=== PATIENT | male | born 1945 | race African-American/Black ===

== ENCOUNTER 2017-02-06 17:41 | Emergency (ER) | payer MEDICARE, OTHER ==
[2017-02-06] MEDS ORDERED: DIPHENHYDRAMINE HCL 50 MG/ML VIAL IV ONE (18:20)
--- NOTE | 2017-02-06 18:55 | ER Document Report ---
ED General - General Chief Complaint: General Weakness Stated Complaint: ALTERED MENTAL STATUS Mode of Arrival: Medic Information source: Patient Notes: 71-year-old male presents with with concerns of numbness sensation in the hand as well as facial tic after being started on gabapentin by primary care physician. Patient notes medication was started yesterday as the symptoms started as well. Denies any weakness anywhere TRAVEL OUTSIDE OF THE [place] IN LAST 30 DAYS: No - HPI Onset: Yesterday Onset/Duration: Sudden Quality of pain: No pain Severity: Mild Pain Level: Denies Associated symptoms: Other Exacerbated by: Denies Relieved by: Denies Similar symptoms previously: Yes Recently seen / treated by doctor: Yes - Related Data Allergies/Adverse Reactions: No Known Allergies Allergy (Verified 02/06/17 18:19) Past Medical History - Social History Smoking Status: Never Smoker Cigarette use (# per day): No Chew tobacco use (# tins/day): No Smoking Education Provided: No Frequency of alcohol use: no longer Drug Abuse: None Family History: Reviewed & Not Pertinent - Past Medical History Cardiac Medical History: Reports: Hx Atrial Fibrillation, Hx Coronary Artery Disease - NON-OBSTRUCTIVE BY CATH, Hx Hypercholesterolemia, Hx Hypertension Denies: Hx Congestive Heart Failure, Hx Heart Attack, Hx Peripheral Vascular Disease, Hx Heart Murmur Pulmonary Medical History: Denies: Hx Asthma, Hx Tuberculosis Neurological Medical History: Denies: Hx Cerebrovascular Accident, Hx Seizures Renal/ Medical History: Reports: Hx Benign Prostatic Hyperplasia GI Medical History: Reports: Hx Gastroesophageal Reflux Disease. Denies: Hx Hepatitis, Hx Hiatal Hernia, Hx Ulcer Psychiatric Medical History: Reports: Hx Depression Infectious Medical History: Denies: Hx Hepatitis Past Surgical History: Reports: Hx Cardiac Surgery - Internal heart monitor Aug 2014, Hx Orthopedic Surgery - MINOR TOE PROCEEDURE. Denies: Hx Appendectomy, Hx Bowel Surgery, Hx Cholecystectomy, Hx Coronary Artery Bypass Graft, Hx Gastric Bypass Surgery, Hx Herniorrhaphy, Hx Open Heart Surgery, Hx Pacemaker, Hx Tonsillectomy - Immunizations Immunizations up to date: Yes Hx Diphtheria, Pertussis, Tetanus Vaccination: Yes Hx Pneumococcal Vaccination: 09/20/11 Review of Systems - Review of Systems Notes: REVIEW OF SYSTEMS: CONSTITUTIONAL : Denies fever, chills, or sweats. Denies recent illness. EENT: Denies eye, ear, throat, or mouth pain or symptoms. Denies nasal or sinus congestion or discharge. Denies throat, tongue, or mouth swelling or difficulty swallowing. CARDIOVASCULAR: Denies chest pain. Denies palpitations or racing or irregular heart beat. Denies ankle edema. RESPIRATORY: Denies cough, cold, or chest congestion. Denies shortness of breath, difficulty breathing, or wheezing. GASTROINTESTINAL: Denies abdominal pain or distention. Denies nausea, vomiting , or diarrhea. Denies blood in vomitus, stools, or per rectum. Denies black, tarry stools. Denies constipation. GENITOURINARY: Denies difficulty urinating, painful urination, burning, frequency, blood in urine, or discharge. MUSCULOSKELETAL: Denies back or neck pain or stiffness. Denies joint pain or swelling. SKIN: Denies rash, lesions or sores. HEMATOLOGIC : Denies easy bruising or bleeding. LYMPHATIC: Denies swollen, enlarged glands. NEUROLOGICAL: Admits to numbness and facial tic PSYCHIATRIC: Denies anxiety or stress. Denies depression, suicidal ideation, or homicidal ideation. ALL OTHER SYSTEMS REVIEWED AND NEGATIVE. Dictation was performed using [employer] voice recognition software PHYSICAL EXAMINATION: GENERAL: Well-appearing, well-nourished and in no acute distress. HEAD: Atraumatic, normocephalic. EYES: Pupils equal round and reactive to light, extraocular movements intact, sclera anicteric, conjunctiva are normal. ENT: Nares patent, oropharynx clear without exudates. Moist mucous membranes. NECK: Normal range of motion, supple without lymphadenopathy LUNGS: Breath sounds clear to auscultation bilaterally and equal. No wheezes rales or rhonchi. HEART: Regular rate and rhythm without murmurs ABDOMEN: Soft, nontender, nondistended abdomen. No guarding, no rebound. No masses appreciated. Musculoskeletal: Normal range of motion, no pitting or edema. No cyanosis. NEUROLOGICAL: Cranial nerves grossly intact. Normal speech, normal gait. Normal sensory, motor exams no neurological deficits noted PSYCH: Normal mood, normal affect. SKIN: Warm, Dry, normal turgor, no rashes or lesions noted. Physical Exam - Vital signs Vitals: Temp Resp BP Pulse Ox 98.4 F 11 L 131/77 H 100 02/06/17 18:24 02/06/17 18:24 02/06/17 18:24 02/06/17 18:24 Course - Re-evaluation Re-evalutation: 02/06/17 18:55 I believe patient is having a reaction to the gabapentin, he'll be given Benadryl and CT of the head lab work pending 02/06/17 19:36 CT of the head lab work note no significant abnormality patient will be discharged to follow-up with primary care physician I requested that he take Benadryl for the facial tic and reaction to medication After performing a Medical Screening Examination, I estimate there is LOW risk for INTRACRANIAL HEMORRHAGE, ISCHEMIC CVA, MALIGNANT DYSRHYTHMIA, ACUTE CORONARY SYNDROME, MENINGITIS, PULMONARY EMBOLISM, or SEPSIS thus I consider the discharge disposition reasonable. I have reevaluated this patient multiple times and no significant life threatening changes are noted. The patient and I have discussed the diagnosis and risks, and we agree with discharging home with close follow-up with the understanding that symptoms and presentations can change. We also discussed returning to the Emergency Department immediately if new or worsening symptoms occur. We have discussed the symptoms which are most concerning (e.g., changing or worsening pain, weakness, vomiting, fever) that necessitate immediate return. - Vital Signs Vital signs: Temp Pulse Resp BP Pulse Ox 98.4 F 11 L 131/77 H 100 02/06/17 18:24 02/06/17 18:24 02/06/17 18:24 02/06/17 18:24 - Laboratory Result Diagrams: 02/06/17 18:58 02/06/17 18:58 Laboratory results interpreted by me: 02/06/17 02/06/17 18:58 18:58 RBC 3.95 L Hgb 12.1 L Hct 35.9 L Est GFR (Non-Af Amer) 59 L ALT 81 H - Diagnostic Test Radiology reviewed: Image reviewed, Reports reviewed - EKG Interpretation by Oh EKG shows normal: Sinus rhythm, [place], Intervals, QRS Complexes Discharge - Discharge Clinical Impression: Facial tic, Medication reaction Condition: Stable Disposition: HOME, SELF-CARE Additional Instructions: Please take Benadryl 50 mg every 6 hours for reaction to medication please stop taking gabapentin Referrals: RUDY SANTIAGO MD [Primary Care Provider] - Follow up tomorrow
[2017-02-06 19:06] LABS: ABSOLUTE EOSINOPHILS # (AUTO) 0.1 10^3/uL (0.0-0.6); ABSOLUTE LYMPHOCYTES (AUTO) 1.5 10^3/uL (0.5-4.7); ABSOLUTE MONOCYTES (AUTO) 0.5 10^3/uL (0.1-1.4); ABSOLUTE NEUT (AUTO) 3.2 10^3/uL (1.7-8.2); BASOPHILS % (AUTO) 0.8 % (0-2); EOSINOPHILS % (AUTO) 2.7 % (0-6); HEMATOCRIT 35.9 % (37.9-51.0); HEMOGLOBIN 12.1 g/dL (13.5-17.0); HGB HCT DIFFERENCE 0.4; LYMPHOCYTES % (AUTO) 27.9 % (13-45); MEAN CORPUSCULAR HEMOGLOBIN 30.5 pg (27.0-33.4); MEAN CORPUSCULAR HGB CONC 33.6 g/dL (32.0-36.0); MEAN CORPUSCULAR VOLUME 91 fl (80-97); RED BLOOD COUNT 3.95 10^6/uL (4.35-5.55); SEGMENTED NEUTROPHILS % (AUTO) 58.6 % (42-78); WHITE BLOOD COUNT 5.4 10^3/uL (4.0-10.5)
--- NOTE | 2017-02-06 19:08 | EKG REPORT ---
SEVERITY:- ABNORMAL ECG - SINUS RHYTHM LEFT VENTRICULAR HYPERTROPHY : Confirmed by: Arden Hinton MD 06-Feb-2017 19:08:05
[2017-02-06 19:23] LABS: ALANINE AMINOTRANSFERASE 81 U/L (21-72); ALBUMIN 3.7 g/dL (3.5-5.0); ALKALINE PHOSPHATASE 89 U/L (38-126); ANION GAP 11 (5-19); ASPARTATE AMINO TRANSFERASE 33 U/L (17-59); BILIRUBIN,DIRECT 0.3 mg/dL (0.0-0.4); BILIRUBIN,TOTAL 0.5 mg/dL (0.2-1.3); BLOOD UREA NITROGEN 15 mg/dL (7-20); CALCIUM 9.2 mg/dL (8.4-10.2); CARBON DIOXIDE 27 mmol/L (22-30); CHLORIDE 104 mmol/L (98-107); CREATININE RESULT 1.21 mg/dL (0.52-1.25); GLUCOSE 96 mg/dL (75-110); POTASSIUM 4.3 mmol/L (3.6-5.0); TOTAL PROTEIN 6.4 g/dL (6.3-8.2)
[2017-02-06 20:21] VITALS: BP 141/89
== END 2017-02-06 20:00 | disposition home or self-care (01) ==
LOC: ER 17:41
DX: G25.61 Drug induced tics (principal); R20.0 Anesthesia of skin; T42.6X5A Adverse effect of other antiepileptic and sedative-hypnotic drugs, initial encounter; I25.10 Atherosclerotic heart disease of native coronary artery without angina pectoris; I10 Essential (primary) hypertension
CPT/HCPCS: 93005; 99285; 96374; 36415; 82962; 85025; 80053; 70450; 93010; J1200

== ENCOUNTER 2017-05-22 14:17 | Inpatient (IN) | payer MEDICARE, OTHER ==
[~2017-05-22 14:17] MED LIST: AMINOPHYLLINE INJ/PF 250 MG/10 ML SDV IV ONE; REGADENOSON INJ 0.4 MG/5 ML DISP.SYRIN IV ONE
--- NOTE | 2017-05-22 14:47 | ER Document Report ---
ED Medical Screen (RME) - General Chief Complaint: Chest Pain Stated Complaint: DIFFICULTY BREATHING CHEST PAIN Time Seen by Provider: 05/22/17 14:42 Mode of Arrival: Wheelchair Information source: Patient Notes: 72-year-old male presents with complaints of decreased appetite over the past 2 days. Patient notes that he has lost weight and does not feel like eating. Patient denies any fevers or chills Patient does note shortness of breath denies any chest pain I have greeted and performed a rapid initial assessment of this patient. A comprehensive ED assessment and evaluation of the patient, analysis of test results and completion of the medical decision making process will be conducted by additional ED providers. PHYSICAL EXAMINATION: GENERAL: Thin male no acute distress HEAD: Atraumatic, normocephalic. EYES: Pupils equal round extraocular movements intact, conjunctiva are normal. ENT: Nares patent NECK: Normal range of motion LUNGS: No respiratory distress Musculoskeletal: Normal range of motion NEUROLOGICAL: Normal speech, normal gait. PSYCH: Normal mood, normal affect. SKIN: Warm, Dry, normal turgor, no rashes or lesions noted. TRAVEL OUTSIDE OF THE [place] IN LAST 30 DAYS: No - Related Data Allergies/Adverse Reactions: No Known Allergies Allergy (Verified 05/22/17 14:18) Past Medical History - Social History Frequency of alcohol use: None Drug Abuse: None - Past Medical History Cardiac Medical History: Reports: Hx Atrial Fibrillation, Hx Coronary Artery Disease - NON-OBSTRUCTIVE BY CATH, Hx Hypercholesterolemia, Hx Hypertension Denies: Hx Congestive Heart Failure, Hx Heart Attack, Hx Peripheral Vascular Disease, Hx Heart Murmur Pulmonary Medical History: Denies: Hx Asthma, Hx Tuberculosis Neurological Medical History: Denies: Hx Cerebrovascular Accident, Hx Seizures Renal/ Medical History: Reports: Hx Benign Prostatic Hyperplasia. Denies: Hx Peritoneal Dialysis GI Medical History: Reports: Hx Gastroesophageal Reflux Disease. Denies: Hx Hepatitis, Hx Hiatal Hernia, Hx Ulcer Psychiatric Medical History: Reports: Hx Depression Infectious Medical History: Denies: Hx Hepatitis Past Surgical History: Reports: Hx Cardiac Surgery - Internal heart monitor Aug 2014, Hx Orthopedic Surgery - MINOR TOE PROCEEDURE. Denies: Hx Appendectomy, Hx Bowel Surgery, Hx Cholecystectomy, Hx Coronary Artery Bypass Graft, Hx Gastric Bypass Surgery, Hx Herniorrhaphy, Hx Open Heart Surgery, Hx Pacemaker, Hx Tonsillectomy - Immunizations Immunizations up to date: Yes Hx Diphtheria, Pertussis, Tetanus Vaccination: Yes Physical Exam - Vital signs Vitals: Resp 18 05/22/17 14:33 Course - Vital Signs Vital signs: Temp Pulse Resp BP Pulse Ox 97.7 F 99 20 115/58 L 100 05/22/17 14:35 05/22/17 14:35 05/22/17 14:35 05/22/17 14:35 05/22/17 14:35
[2017-05-22 15:22] LABS: ABSOLUTE LYMPHOCYTES (AUTO) 1.2 10^3/uL (0.5-4.7); ABSOLUTE MONOCYTES (AUTO) 0.4 10^3/uL (0.1-1.4); ABSOLUTE NEUT (AUTO) 6.9 10^3/uL (1.7-8.2); BASOPHILS % (AUTO) 0.4 % (0-2); EOSINOPHILS % (AUTO) 0.1 % (0-6); HEMATOCRIT 40.7 % (37.9-51.0); HEMOGLOBIN 13.8 g/dL (13.5-17.0); HGB HCT DIFFERENCE 0.7; LYMPHOCYTES % (AUTO) 14.1 % (13-45); MEAN CORPUSCULAR HEMOGLOBIN 32.1 pg (27.0-33.4); MEAN CORPUSCULAR HGB CONC 33.8 g/dL (32.0-36.0); MEAN CORPUSCULAR VOLUME 95 fl (80-97); MONOCYTES % (AUTO) 4.9 % (3-13); RED BLOOD COUNT 4.29 10^6/uL (4.35-5.55); RED CELL DISTRIBUTION WIDTH 14.6 % (11.5-14.0); SEGMENTED NEUTROPHILS % (AUTO) 80.5 % (42-78); WHITE BLOOD COUNT 8.6 10^3/uL (4.0-10.5)
--- NOTE | 2017-05-22 15:37 | RADIOLOGY REPORT (SQ) ---
EXAM DESCRIPTION: CHEST SINGLE VIEW COMPLETED DATE/TIME: 05/22/2017 3:18 pm REASON FOR STUDY: sob COMPARISON: 06/09/2016 NUMBER OF VIEWS: One view. TECHNIQUE: Single frontal radiographic view of the chest acquired. LIMITATIONS: None. FINDINGS: LUNGS AND PLEURA: No opacities, masses or pneumothorax. No pleural effusion. MEDIASTINUM AND HILAR STRUCTURES: No masses. Contour normal. HEART AND VASCULAR STRUCTURES: Heart normal in size. Normal vasculature. BONES: No acute findings. HARDWARE: None in the chest. OTHER: No other significant finding. IMPRESSION: NO SIGNIFICANT RADIOGRAPHIC FINDING IN THE CHEST. TECHNICAL DOCUMENTATION: JOB ID: [id number] [employer] [facility] [employer]- All Rights Reserved
[2017-05-22 15:45] LABS: ALANINE AMINOTRANSFERASE 99 U/L (21-72); ALBUMIN 4.3 g/dL (3.5-5.0); ALKALINE PHOSPHATASE 83 U/L (38-126); ASPARTATE AMINO TRANSFERASE 117 U/L (17-59); BILIRUBIN,DIRECT 0.5 mg/dL (0.0-0.4); BILIRUBIN,TOTAL 1.1 mg/dL (0.2-1.3); BLOOD UREA NITROGEN 25 mg/dL (7-20); CALCIUM 9.2 mg/dL (8.4-10.2); CHLORIDE 106 mmol/L (98-107); CREATININE RESULT 1.03 mg/dL (0.52-1.25); GLUCOSE 108 mg/dL (75-110); POTASSIUM 3.3 mmol/L (3.6-5.0); TOTAL PROTEIN 7.1 g/dL (6.3-8.2)
[2017-05-22 15:53] LABS: CREATINE KINASE 2654 U/L (55-170)
[2017-05-22 15:54] LABS: ANION GAP 19 (5-19); CARBON DIOXIDE 15 mmol/L (22-30); SODIUM 140.2 mmol/L (137-145)
[2017-05-22 15:59] LABS: TROPONIN I < 0.012 ng/mL
--- NOTE | 2017-05-22 16:50 | ER Document Report ---
ED General - General Mode of Arrival: Wheelchair Information source: Patient TRAVEL OUTSIDE OF THE [place] IN LAST 30 DAYS: No <COREEN DAVIS - Last Filed: 05/22/17 19:59> <WESLEY ALEX - Last Filed: 05/22/17 22:30> - General Chief Complaint: Chest Pain Stated Complaint: DIFFICULTY BREATHING CHEST PAIN Time Seen by Provider: 05/22/17 14:42 Notes: Patient is a 72-year-old male who presents to the emergency department today with complaints of shortness of breath. Patient states "I asked for a sandwich a couple hours ago" when walking into the room. Patient states he does not think he has been drinking as much water as he should have over the last few days. Patient complains of chest pain. Patient denies any muscle cramps. Patient is a poor historian so history is limited. (COREEN DAVIS) - Related Data Allergies/Adverse Reactions: No Known Allergies Allergy (Verified 05/22/17 14:18) Home Medications: Current Home Medications Docusate Sodium [Colace 100 mg Capsule] 200 mg PO BID 05/22/17 [History] Finasteride [Proscar 5 mg Tablet] 5 mg PO DAILY 05/22/17 [History] Folic Acid [Folvite 1 mg Tablet] 1 mg PO DAILY 05/22/17 [History] Lubiprostone [Amitiza 24 Mcg Capsule] 24 mcg PO BIDACBS 05/22/17 [History] Metoprolol Succinate [Toprol Xl 50 mg Tab.sr] 50 mg PO DAILY 05/22/17 [History] Thiamine HCl [Thiamine 100 mg Tablet] 100 mg PO DAILY 05/22/17 [History] Past Medical History - General Information source: Patient - Social History Smoking Status: Never Smoker Cigarette use (# per day): No Frequency of alcohol use: None Drug Abuse: None Lives with: Family Family History: Reviewed & Not Pertinent Patient has suicidal ideation: No Patient has homicidal ideation: No - Past Medical History Cardiac Medical History: Reports: Hx Atrial Fibrillation, Hx Coronary Artery Disease, Hx Hypercholesterolemia Renal/ Medical History: Reports: Hx Benign Prostatic Hyperplasia GI Medical History: Reports: Hx Gastroesophageal Reflux Disease Psychiatric Medical History: Reports: Hx Depression Past Surgical History: Reports: Hx Cardiac Surgery - Internal heart monitor Aug 2014, Hx Orthopedic Surgery - MINOR TOE PROCEEDURE - Immunizations Immunizations up to date: Yes Hx Diphtheria, Pertussis, Tetanus Vaccination: Yes Hx Pneumococcal Vaccination: 09/20/11 <COREEN DAVIS - Last Filed: 05/22/17 19:59> Review of Systems - Review of Systems Constitutional: No symptoms reported EENT: No symptoms reported Cardiovascular: See HPI, Chest pain Respiratory: See HPI, Short of breath Gastrointestinal: No symptoms reported Genitourinary: No symptoms reported Male Genitourinary: No symptoms reported Musculoskeletal: No symptoms reported Skin: No symptoms reported Hematologic/Lymphatic: No symptoms reported Neurological/Psychological: No symptoms reported -: Yes All other systems reviewed and negative <COREEN DAVIS - Last Filed: 05/22/17 19:59> Physical Exam <COREEN DAVIS - Last Filed: 05/22/17 19:59> <WESLEY ALEX - Last Filed: 05/22/17 22:30> - Vital signs Vitals: Resp 18 05/22/17 14:33 - Notes Notes: Physical Exam: General: Alert, appears well. HEENT: Normocephalic. Atraumatic. PERRL. Extraocular movements intact. Oropharynx clear. Dry mucous membranes. Neck: Supple. Non-tender. Respiratory: No respiratory distress. Clear and equal breath sounds bilaterally. Cardiovascular: Regular rate and rhythm. Abdominal: Normal Inspection. Non-tender. No distension. Normal Bowel Sounds. Back: Non-tender. No deformity or step off. Extremities: Moves all four extremities. Upper extremities: Normal inspection. Normal ROM. Lower extremities: Normal inspection. No edema. Normal ROM. Neurological: Normal cognition. AAOx4. Normal speech. Slow to answer, occasional inappropriate responses consistent with encephalopathy. Psychological: Normal affect. Normal Mood. Skin: Warm. Dry. Normal color. (COREEN DAVIS) Course - Laboratory Result Diagrams: 05/22/17 15:00 05/22/17 15:00 <COREEN DAVIS - Last Filed: 05/22/17 19:59> - Laboratory Result Diagrams: 05/22/17 15:00 05/22/17 15:00 - Diagnostic Test Radiology reviewed: Reports reviewed - EKG Interpretation by Ga EKG shows normal: Sinus rhythm Rate: Normal Rhythm: NSR <WESLEY ALEX - Last Filed: 05/22/17 22:30> - Re-evaluation Re-evalutation: 05/22/17 Patient is a 72-year-old male who has an odd affect. Patient was complaining of chest pain. Patient's blood work also shows that he is in some rhabdomyolysis. Patient states that perhaps he has been drinking less fluids than he should last few days. He has no complaints of chest pain at this time. Patient is able to tell me that he lives with his in a year, as well as a month. However, when I am asking him medical questions, he just asked me for food. Patient was discussed with Dr. Luna and will be admitted for further evaluation of chest pain and encephalopathy. He also be given fluids for rhabdomyolysis. Stable at this time. (WESLEY ALEX) - Vital Signs Vital signs: Temp Pulse Resp BP Pulse Ox 98.1 F 92 9 L 160/88 H 98 05/22/17 18:25 05/22/17 20:00 05/22/17 21:38 05/22/17 21:38 05/22/17 21:38 - Laboratory Laboratory results interpreted by me: 05/22/17 05/22/17 05/22/17 15:00 15:00 15:00 RBC 4.29 L RDW 14.6 H Seg Neutrophils % 80.5 H Potassium 3.3 L Carbon Dioxide 15 L BUN 25 H Direct Bilirubin 0.5 H AST 117 H ALT 99 H Creatine Kinase 2654 H CK-MB (CK-2) 18.60 H Urine Protein Urine Ketones Urine Blood 05/22/17 16:45 RBC RDW Seg Neutrophils % Potassium Carbon Dioxide BUN Direct Bilirubin AST ALT Creatine Kinase CK-MB (CK-2) Urine Protein >=500 H Urine Ketones 20 H Urine Blood MODERATE H Discharge <COREEN DAVIS - Last Filed: 05/22/17 19:59> - Discharge Admitting Provider: Tawanna Unit Admitted: Telemetry <WESLEY ALEX - Last Filed: 05/22/17 22:30> - Discharge Clinical Impression: Encephalopathy Rhabdomyolysis Qualifiers: Rhabdomyolysis type: non-traumatic Qualified Code(s): M62.82 - Rhabdomyolysis Condition: Stable Disposition: ADMITTED INPATIENT Scribe Attestation: 08/15/17 22:30 I personally performed the services described in the documentation, reviewed and edited the documentation which was dictated to the scribe in my presence, and it accurately records my words and actions. (WESLEY ALEX) Scribe Documentation - Scribe Written by Scribe:: Shabana Deutsch, 05/22/2017 1703 acting as scribe for :: June <COREEN DAVIS - Last Filed: 05/22/17 19:59>
[2017-05-22 17:20] LABS: APPEARANCE,URINE SLIGHTLY-CLOUDY; BILIRUBIN,URINE NEGATIVE (NEGATIVE); GLUCOSE, URINE NEGATIVE (NEGATIVE); KETONES,URINE 20 mg/dL (NEGATIVE); LEUKOCYTE ESTERASE,URINE NEGATIVE (NEGATIVE); NITRITE,URINE NEGATIVE (NEGATIVE); PROTEIN,URINE >=500 mg/dL (NEGATIVE); URINE SPECIFIC GRAVITY 1.033; UROBILINOGEN,URINE NEGATIVE mg/dL (<2.0)
--- NOTE | 2017-05-22 17:24 | RADIOLOGY REPORT (SQ) ---
EXAM DESCRIPTION: CT HEAD WITHOUT COMPLETED DATE/TIME: 05/22/2017 5:03 pm REASON FOR STUDY: AMS COMPARISON: 02/06/2017 TECHNIQUE: Axial images acquired through the brain without intravenous contrast. Images reviewed wi th bone, brain and subdural windows. Images stored on PACS. All CT scanners at this facility use dose modulation, iterative reconstruction, and/or weight based d osing when appropriate to reduce radiation dose to as low as reasonably achievable (ALARA). [facility]: Dose Right [facility]: CareDose [facility]: Dose Right [facility]: Teradose 4D [facility]: Smart Ganji RADIATION DOSE: Up-to-date CT equipment and radiation dose reduction techniques were employed. CTDIv ol: 64.6 mGy. DLP: 1163 mGy-cm.mGy. LIMITATIONS: None. FINDINGS: VENTRICLES: Prominent. CEREBRUM: No masses. No hemorrhage. No midline shift. Areas of low density in the white matter mos t likely due to chronic micro-vascular ischemic change. No evidence for acute infarction. CEREBELLUM: No masses. No hemorrhage. No alteration of density. No evidence for acute infarction. EXTRAAXIAL SPACES: Age-related involutional change. No fluid collections. No masses. ORBITS AND GLOBE: No intra- or extraconal masses. Normal contour of globe without masses. CALVARIUM: No fracture. PARANASAL SINUSES: No fluid or mucosal thickening. SOFT TISSUES: No mass or hematoma. OTHER: No other significant finding. IMPRESSION: NO ACUTE INTRACRANIAL PROCESS. NO SIGNIFICANT CHANGE FROM PRIOR STUDY. TECHNICAL DOCUMENTATION: JOB ID: [id number] Quality ID # [id number]: Final reports with documentation of one or more dose reduction techniques (e.g., Au tomated exposure control, adjustment of the mA and/or kV according to patient size, use of iterative reconstruction technique) 2010 [employer]- All Rights Reserved
[2017-05-22] MEDS ORDERED: IPRATROPIUM/ALBUTEROL 0.5-2.5 MG/3 ML AMPUL NEB PRN (17:29)
[2017-05-22] MEDS ORDERED: ONDANSETRON HCL INJ/PF 4 MG/2 ML SDV IV PRN (17:29)
[2017-05-22] MEDS ORDERED: ACETAMINOPHEN 325 MG TABLET PO PRN (17:29)
[2017-05-22] MEDS ORDERED: POTASSIUM CHLORIDE 10 MEQ TABLET.SA PO ONE (18:30)
--- NOTE | 2017-05-22 18:56 | RADIOLOGY REPORT (SQ) ---
EXAM DESCRIPTION: CTA CHEST COMPLETED DATE/TIME: 05/22/2017 6:36 pm REASON FOR STUDY: sob/chest pain COMPARISON: None. TECHNIQUE: CT scan of the chest performed using helical scanning technique with dynamic intravenous contrast injection. Images reviewed with lung, soft tissue and bone windows. Reconstructed coronal and sagittal MPR images reviewed. Additional 3 dimensional post-processing performed to develop Maximal Intensity Projection images (VT P). All images stored on PACS. All CT scanners at this facility use dose modulation, iterative reconstruction, and/or weight based d osing when appropriate to reduce radiation dose to as low as reasonably achievable (ALARA). [facility]: Dose Right [facility]: CareDose [facility]: Dose Right [facility]: Teradose 4D [facility]: Fluid-1 CONTRAST TYPE AND DOSE: contrast/concentration: Isovue 370.00 mg/ml; Total Contrast Delivered: 78.0 ml; Total Saline Delivered: 90.0 ml RENAL FUNCTION: Creatinine 1 BUN 25 RADIATION DOSE: Up-to-date CT equipment and radiation dose reduction techniques were employed. CTDIv ol: 14.6 - 16.5 mGy. DLP: 584 mGy-cm. . LIMITATIONS: None FINDINGS: LUNGS AND PLEURA: No masses, infiltrates, pneumothorax. No pleural effusions, calcificati ons. AORTA AND GREAT VESSELS: No aneurysm or dissection. HEART: No pericardial effusion. PULMONARY ARTERIES: No emboli visualized in the main pulmonary arteries or the segmental branches. HILAR AND MEDIASTINAL STRUCTURES: No identified masses or abnormal nodes. HARDWARE: None in the chest. UPPER ABDOMEN: There is a 2 cm cyst in the liver. THYROID AND OTHER SOFT TISSUES: No masses. No adenopathy. BONES: No acute or significant finding. 3D MIPS: Confirm above findings. OTHER: No other significant finding. IMPRESSION: NORMAL CTA OF THE CHEST. NO PULMONARY EMBOLI. TECHNICAL DOCUMENTATION: JOB ID: [id number] Quality ID # [id number]: Final reports with documentation of one or more dose reduction techniques (e.g., Au tomated exposure control, adjustment of the mA and/or kV according to patient size, use of iterative reconstruction technique) 2010 [employer]- All Rights Reserved
--- NOTE | 2017-05-22 20:10 | PDOC CONSULTATION ---
Consultation Consult Date: 05/22/17 Attending physician:: CARLENE LUNA Consult reason:: Shortness of breath History of Present Illness Admission Date/PCP: 05/22/17 17:29 RUDY SANTIAGO MD Patient complains of: Shortness of breath History of Present Illness: REGINO JASSO is a 72 year old male, patient is a poor historian who presents with shortness of breath. Patient is denying any chest pain. He did tell me however that he had a pacemaker placed by Dr. Luna for years ago but I could not feel a pacemaker nor can I see any evidence of this being placed based on chest x-ray and CT scan review. It is felt that patient may be confused. On direct questioning he denied any syncope, near syncope. No family members around to give any more history. Past Medical History Cardiac Medical History: Reports: Atrial Fibrillation, Coronary Artery Disease, Hyperlipidema, Hypertension Denies: Congestive Heart Failure, Myocardial Infarction, Peripheral Vascular Disease, Heart Murmur Pulmonary Medical History: Denies: Asthma, Tuberculosis Neurological Medical History: Denies: Seizures GI Medical History: Reports: Gastroesophageal Reflux Disease Denies: Hepatitis, Hiatal Hernia Psychiatric Medical History: Reports: Depression Hematology: Reports: Anemia Denies: Sickle Cell Disease Past Surgical History Past Surgical History: Reports: Orthopedic Surgery - MINOR TOE PROCEEDURE Denies: Appendectomy, Cholecystectomy, Coronary Artery Bypass Graft, Gastric Bypass Surgery, Herniorrhaphy, Pacemaker, Tonsillectomy Social History Information Source: Patient Lives with: Family Smoking Status: Never Smoker Frequency of Alcohol Use: None Hx Recreational Drug Use: No Drugs: None Hx Prescription Drug Abuse: No - Advance Directive Resuscitation Status: Full Code Surrogate healthcare decision maker:: Patient's is the surrogate decision-maker Family History Family History: Hypertension Parental Family History Reviewed: Yes Children Family History Reviewed: Yes Sibling(s) Family History Reviewed.: Yes - Negative for premature coronary artery disease or sudden cardiac in the family amongst first degree relatives. Medication/Allergy Home Medications: Docusate Sodium [Colace 100 mg Capsule] 200 mg PO BID 05/22/17 Finasteride [Proscar 5 mg Tablet] 5 mg PO DAILY 05/22/17 Folic Acid [Folvite 1 mg Tablet] 1 mg PO DAILY 05/22/17 Lubiprostone [Amitiza 24 Mcg Capsule] 24 mcg PO BIDACBS 05/22/17 Metoprolol Succinate [Toprol Xl 50 mg Tab.sr] 50 mg PO DAILY 05/22/17 Thiamine HCl [Thiamine 100 mg Tablet] 100 mg PO DAILY 05/22/17 Allergies/Adverse Reactions: No Known Allergies Allergy (Verified 05/22/17 14:18) Review of Systems Review of Systems: Please see history of present illness and past medical history as wall. System review obtained by direct questioning. Constitutional: No fever or chills reported. Head : No recent chronic headaches, recent head injury. Eyes: No recent eye pain, diplopia, redness, discharge, acute visual changes. Ears: No recent chronic ear pain, acute hearing loss, ear discharge. Oral cavity: No recent ulcerations, bleeding, oral cavity discomfort. Neck: No recent acute neck pain reported. Hematologic: No recent easy bruising or bleeding or hematologic malignancy reported. Lymphatic: No recent lymphatic malignancy, chronic lymphadenopathy reported yet Cardiovascular system review: See history of present illness. Respiratory system review: No recent chronic cough, hemoptysis, blood clots in the lungs reported. Shortness of breath on exertion Gastrointestinal system review: Negative for any recent acute or chronic abdominal pain, hematemesis, melena, recent change in bowel habits. Genitourinary system review: No recent acute or chronic hematuria, flank pain, UTI etc. reported. Skin system review: Negative for any recent abnormal bruising, no rash, no pruritus reported. Neurologic: No prior history of strokes, mini strokes, seizure disorder. Psychologic: No history of major psychosis or major depression reported. Musculoskeletal: Minor aches and pains reported. No acute joint swelling reported. Endocrine: No recent polyuria, polydipsia, recent heat or cold intolerance. Physical Exam Vital Signs: Temp Pulse Resp BP Pulse Ox 97.7 F 92 16 115/58 L 100 05/22/17 14:35 05/22/17 18:25 05/22/17 18:25 05/22/17 14:35 05/22/17 18:25 Exam: GENERAL: well-nourished and in no acute distress. Alert and oriented x3 HEAD: Atraumatic, normocephalic. EYES: Pupils equal round and reactive to light, extraocular movements intact, sclera anicteric, conjunctiva are normal. ENT: TMs normal, nares patent, oropharynx clear without exudates. Moist mucous membranes. No oral ulcerations or bleeding gums noted NECK: supple without lymphadenopathy. Trachea is central. No cervical or axillary lymphadenopathy noted. Carotids are 2+, JVD WNL LUNGS: Respiration seems nonlabored, no significant accessory muscle action noted. Breath sounds clear to auscultation bilaterally and equal noted. No wheezes rales or rhonchi noted. No significant dullness noted on percussion. CHEST: Palpation of the chest wall shows no significant chest wall tenderness. No other significant abnormalities noted. HEART: [place] [employer] OFF[employer]ER, No PSH, 1/6 TONY aortic area, 1/6 chopra systolic murmur mitral area, no rubs, no gallops. ABDOMEN: Soft, no significant tenderness appreciated, normoactive bowel sounds. No guarding, no rebound. No rigidity noted . No masses appreciated. EXTREMITIES: Pedal pulses are 1-2+, no calf tenderness noted. No clubbing or cyanosis.trace to 1+ pedal edema noted NEUROLOGICAL: Focused neurological exam showed no significant neurologic deficit. Normal speech, no focal weakness appreciated. PSYCH: Normal mood, normal affect. Judgment and insight not checked SKIN: No significant ecchymosis, rash, ulcerations or signs of pruritus noted. MUSCULOSKELETAL EXAM: No significant joint swelling noted. Results Laboratory Results: 05/22/17 17:58 Ammonia < 8.7 L EKG Comments: Sinus rhythm, frequent PVCs, possible LVH versus ischemic ST segment changes lateral chest leads Impressions: Chest/Abdomen CTA 05/22/17 00:00 IMPRESSION: NORMAL CTA OF THE CHEST. NO PULMONARY EMBOLI. Chest X-Ray 05/22/17 14:45 IMPRESSION: NO SIGNIFICANT RADIOGRAPHIC FINDING IN THE CHEST. Head CT 05/22/17 16:37 IMPRESSION: NO ACUTE INTRACRANIAL PROCESS. NO SIGNIFICANT CHANGE FROM PRIOR STUDY. Assessment & Plan - Diagnosis (1) Shortness of breath Is this a current diagnosis for this admission?: Yes (2) Abnormal cardiac enzyme level Is this a current diagnosis for this admission?: Yes (3) Hypertension Is this a current diagnosis for this admission?: Yes (4) Coronary artery disease Qualifiers: Coronary Disease-Associated Artery/Lesion type: eek artery Associated angina: angina presence unspecified Is this a current diagnosis for this admission?: Yes - Notes Notes: We will ordered a 2D echo. Follow cardiac enzymes. Will consider a nuclear stress test. Dyspnea: Possible cardiac dysrhythmia related, possible underlying CAD and ischemia equivalent symptom, pulmonary embolism and CHF who ruled out by a normal BNP level, no evidence of CHF and negative CTA. Patient will be scheduled for a nuclear stress test and a 2D echo. Coronary artery disease: Patient noted to have coronary calcification. This indicates underlying CAD. To be further evaluated with a nuclear stress test. Hypertension: Recommend good control of hypertension. Blood pressure goal should be 135/85 or less. Recommend beta-blockers/VINH/ARB VINH inhibitor/ARB as preferred agent. Abnormal cardiac enzymes: Initial troponin is normal others are pending. Total CK and CK-MB elevated and could represent low level rhabdomyolysis. - Time Time Spent: 50 to 70 Minutes - CODE STATUS was discussed, patient remains full code. Surrogate decision-maker patient's . Multiple medical problems were addressed. More than 50% of the time spent coordinating care, discussing management plans with involved caregivers. Management plans discussed with involved personnels. Medical decision making was of moderate to high complexity , patient's has multiple comorbidities. Medications reviewed and adjusted accordingly: Yes
[2017-05-22] MEDS: CEFTRIAXONE 1 GM/D5W RTU 1 GM/50 ML RTUPB IV SCH (21:32)
[2017-05-22 21:42] LABS: TROPONIN I < 0.012 ng/mL
[2017-05-22] MEDS: NORMAL SALINE 1000 ML 1,000 ML IV PRN (22:38)
[2017-05-23 03:37] LABS: ABSOLUTE EOSINOPHILS # (AUTO) 0.1 10^3/uL (0.0-0.6); ABSOLUTE LYMPHOCYTES (AUTO) 1.4 10^3/uL (0.5-4.7); ABSOLUTE MONOCYTES (AUTO) 0.6 10^3/uL (0.1-1.4); ABSOLUTE NEUT (AUTO) 4.6 10^3/uL (1.7-8.2); BASOPHILS % (AUTO) 0.4 % (0-2); EOSINOPHILS % (AUTO) 1.4 % (0-6); HEMATOCRIT 37.8 % (37.9-51.0); HGB HCT DIFFERENCE 1.2; LYMPHOCYTES % (AUTO) 21.1 % (13-45); MEAN CORPUSCULAR HEMOGLOBIN 32.8 pg (27.0-33.4); MEAN CORPUSCULAR HGB CONC 34.3 g/dL (32.0-36.0); MEAN CORPUSCULAR VOLUME 96 fl (80-97); MONOCYTES % (AUTO) 9.5 % (3-13); RED BLOOD COUNT 3.96 10^6/uL (4.35-5.55); RED CELL DISTRIBUTION WIDTH 14.8 % (11.5-14.0); SEGMENTED NEUTROPHILS % (AUTO) 67.6 % (42-78); WHITE BLOOD COUNT 6.8 10^3/uL (4.0-10.5)
[2017-05-23 03:47] LABS: ALANINE AMINOTRANSFERASE 88 U/L (21-72); ALBUMIN 3.7 g/dL (3.5-5.0); ALKALINE PHOSPHATASE 68 U/L (38-126); ANION GAP 14 (5-19); ASPARTATE AMINO TRANSFERASE 110 U/L (17-59); BILIRUBIN,DIRECT 0.4 mg/dL (0.0-0.4); BILIRUBIN,TOTAL 1.3 mg/dL (0.2-1.3); BLOOD UREA NITROGEN 22 mg/dL (7-20); CALCIUM 8.6 mg/dL (8.4-10.2); CARBON DIOXIDE 21 mmol/L (22-30); CHLORIDE 106 mmol/L (98-107); CREATININE RESULT 0.92 mg/dL (0.52-1.25); GLUCOSE 99 mg/dL (75-110); POTASSIUM 3.6 mmol/L (3.6-5.0); TOTAL PROTEIN 6.4 g/dL (6.3-8.2)
[2017-05-23] MEDS: LANSOPRAZOLE 15 MG TAB.RAP.DR PO SCH ×2 (06:04→18:56)
[2017-05-23 08:03] LABS: CREATINE KINASE 2115 U/L (55-170); TROPONIN I < 0.012 ng/mL
--- NOTE | 2017-05-23 08:19 | EKG REPORT ---
SEVERITY:- ABNORMAL ECG - SINUS TACHYCARDIA MULTIFORM VENTRICULAR PREMATURE COMPLEXES NONSPECIFIC T ABNORMALITIES, DIFFUSE LEADS : Confirmed by: Arden Hinton MD 23-May-2017 08:19:10
[2017-05-23] MEDS: NORMAL SALINE 1000 ML 1,000 ML IV PRN (08:51)
--- NOTE | 2017-05-23 08:52 | PDOC PROGRESS REPORT ---
Subjective Progress Note for:: 05/23/17 Subjective:: Patient is currently doing much better wants to go home. Patient CT angiogram was negative and patient seen by Dr. Esparza for so far negative cardiac workup scheduled the echocardiogram todayPatient on the telemetry bed have a sinus rhythm Patient used to take the Eliquis for I think paroxysmal A. fib but according to the patient Dr. Stacy stop the medicines Physical Exam Vital Signs: Temp Pulse Resp BP Pulse Ox 98.5 F 64 20 157/87 H 99 05/23/17 03:19 05/23/17 07:00 05/23/17 03:19 05/23/17 03:19 05/23/17 03:19 Intake & Output 05/22/17 05/23/17 05/24/17 06:59 06:59 06:59 Intake Total 700 Output Total 0 Balance 700 Weight 78.1 kg General appearance: PRESENT: no acute distress, well-developed, well-nourished Head exam: PRESENT: atraumatic, normocephalic Eye exam: PRESENT: conjunctiva pink, EOMI, PERRLA. ABSENT: scleral icterus Ear exam: PRESENT: normal external ear exam Mouth exam: PRESENT: moist, tongue midline Neck exam: PRESENT: full ROM. ABSENT: carotid bruit, JVD, lymphadenopathy, thyromegaly Respiratory exam: PRESENT: clear to auscultation radames Cardiovascular exam: PRESENT: RRR. ABSENT: diastolic murmur, rubs, systolic murmur Pulses: PRESENT: normal dorsalis pedis pul, +2 pedal pulses bilateral Vascular exam: PRESENT: normal capillary refill GI/Abdominal exam: PRESENT: normal bowel sounds, soft. ABSENT: distended, guarding, mass, organolmegaly, rebound, tenderness Rectal exam: PRESENT: deferred Neurological exam: PRESENT: alert, awake, oriented to person, oriented to place , oriented to time, oriented to situation, CN II-XII grossly intact. ABSENT: motor sensory deficit Psychiatric exam: PRESENT: appropriate affect, normal mood. ABSENT: homicidal ideation, suicidal ideation Skin exam: PRESENT: dry, intact, warm. ABSENT: cyanosis, rash Results Laboratory Results: 05/23/17 03:14 05/23/17 03:14 05/22/17 05/23/17 05/23/17 17:58 03:14 03:14 WBC 6.8 RBC 3.96 L Hgb 13.0 L Hct 37.8 L MCV 96 MCH 32.8 MCHC 34.3 RDW 14.8 H Plt Count 158 Seg Neutrophils % 67.6 Lymphocytes % 21.1 Monocytes % 9.5 Eosinophils % 1.4 Basophils % 0.4 Absolute Neutrophils 4.6 Absolute Lymphocytes 1.4 Absolute Monocytes 0.6 Absolute Eosinophils 0.1 Absolute Basophils 0.0 Sodium 141.0 Potassium 3.6 Chloride 106 Carbon Dioxide 21 L Anion Gap 14 BUN 22 H Creatinine 0.92 Est GFR ( Amer) > 60 Est GFR (Non-Af Amer) > 60 Glucose 99 Calcium 8.6 Total Bilirubin 1.3 AST 110 H ALT 88 H Alkaline Phosphatase 68 Ammonia < 8.7 L Total Protein 6.4 Albumin 3.7 05/22/17 05/22/17 05/23/17 20:51 20:51 03:14 Creatine Kinase 2374 H CK-MB (CK-2) 15.90 H 13.30 H Troponin I < 0.012 < 0.012 05/23/17 03:14 Creatine Kinase 2115 H CK-MB (CK-2) Troponin I Impressions: Chest/Abdomen CTA 05/22/17 00:00 IMPRESSION: NORMAL CTA OF THE CHEST. NO PULMONARY EMBOLI. Chest X-Ray 05/22/17 14:45 IMPRESSION: NO SIGNIFICANT RADIOGRAPHIC FINDING IN THE CHEST. Head CT 05/22/17 16:37 IMPRESSION: NO ACUTE INTRACRANIAL PROCESS. NO SIGNIFICANT CHANGE FROM PRIOR STUDY. Assessment & Plan - Diagnosis (1) Rhabdomyolysis Qualifiers: Rhabdomyolysis type: non-traumatic Qualified Code(s): M62.82 - Rhabdomyolysis Is this a current diagnosis for this admission?: Yes Plan: Continues to IV fluid and I think patient is getting already better will get the physical therapy (2) Hypertension Qualifiers: Hypertension type: essential hypertension Qualified Code(s): I10 - Essential (primary) hypertension Is this a current diagnosis for this admission?: Yes Plan: Currently stable (3) Paroxysmal atrial fibrillation Is this a current diagnosis for this admission?: Yes Plan: Patient is currently in sinus rhythm will continues to aspirin and will defer the Dr. Esparza for further evaluate (4) Shortness of breath Is this a current diagnosis for this admission?: Yes Plan: Patient's current all workup is negativeIn patients already started feeling better (5) Weakness Is this a current diagnosis for this admission?: Yes Plan: Most likely due to the rhabdomyolysis and after IV hydration's patient is already feel better - Time Time Spent with patient: 15-24 minutes Medications reviewed and adjusted accordingly: Yes Anticipated discharge: Home Within: within 24 hours - Inpatient Certification Medical Necessity: Need Close Monitoring Due to Risk of Patient Decompensation Post Hospital Care: D/C Mechanical Laboratory Technician Documentation - Plan Summary Plan Summary: Continues current medications
--- NOTE | 2017-05-23 10:22 | HISTORY AND PHYSICAL E ---
History and Physical NAME: REGINO JASSO : 1945 AGE: 72Y ADMITTED: 05/22/2017 ROOM: [facility] CHIEF COMPLAINT: Chest pain, shortness of breath. HISTORY OF PRESENT ILLNESS: This is a 72-year-old male, a patient of Dr. Stacy, with a significant history of encephalopathy, hypertension and hyperlipidemia, who came to the emergency department with complaints of the shortness of breath. The patient stated when walking into the room. The patient said that he has not been drinking as much water. The patient also complains of chest pain, denied any muscle pain. The patient is a very poor historian and sounds a little confused. The patient has a history of atrial fibrillation, is currently on Eliquis. The patient has denied any abdominal pain. No nausea. No vomiting. The patient was initially worked up in the ER where the head CT was negative for any acute findings, but patient had an elevated CPK which is most likely related to the rhabdomyolysis now. The patient at this point is admitted for IV fluids and further evaluation about his chest pain. PAST MEDICAL HISTORY: 1. Hypertension. 2. Atrial fibrillation. 3. Benign prostatic hypertrophy. 4. Hyperlipidemia. 5. Alcohol abuse. The patient has currently denied any alcohol abuse. 6. The patient has a history of angiodysplasia of the sigmoid colon and history of a GI bleed. ALLERGIES: No known drug allergies. MEDICATIONS: The patient's home medications are as per the previous . FAMILY HISTORY: Noncontributory. PERSONAL SOCIAL HISTORY: The patient is currently , lives with his . Denied any cigarettes or illicit drugs currently, not using any alcohol currently. REVIEWING OF SYSTEMS: As above, all further pertinents negative. PHYSICAL EXAMINATION: VITAL SIGNS: Blood pressure was 115/58. Temperature was 37. Pulse was 99. Respiration was 20. O2 saturation 100% on room air. GENERAL: The patient is alert, awake, a little confused, in no acute distress. HEAD AND NECK: Normocephalic. ANUP. LUNGS: There is no wheezing, no rales, no rhonchi. HEART: S1, S2 is present. ABDOMEN: Soft. Bowel sounds present. EXTREMITIES: No edema. NEUROLOGIC: No focal weaknesses. The patient can move all 4 extremities. The patient is alert, awake, answering the questions but sometimes, according to the ER physician, a little confused. DIAGNOSTIC DATA: The patient's lab is WBC is 8.6, hemoglobin is , platelet is 216. Sodium is 140, potassium is 3.3, BUN is 45, creatinine is 1.03 with an AST of 117, ALT is 99. The patient's CPK is 2654. The patient's troponin level is 0.02. NT-BNP is 228. The patient's urine has moderate blood, but other than that is negative. Chest x-ray is negative. Head CT was negative for any acute findings. ASSESSMENT: 1. Chest pain, shortness of breath. 2. Acute rhabdomyolysis. 3. Hypertension. 4. Chronic atrial fibrillation. 5. Hyperlipidemia. 6. Confusion. PLAN: The plan is at this point admit the patient in the IMCU, start the patient on IV fluids and rule out acute coronary syndrome. Continue the current list of medications. See the MD orders. Discussed with the ER physician and the nurses who are taking care of the patient in the ER. I tried to contact the . I more than 35 minutes spent with the patient. DICTATING PHYSICIAN: CARLENE BELL M.D. [id number] PHY#: [id number] ID: [id number] JOB#: [id number] ACCT: [id number] cc:CARLENE BELL M.D. >
[2017-05-23 10:36] LABS: TROPONIN I < 0.012 ng/mL
[2017-05-23] MEDS: DOCUSATE SODIUM 100 MG CAPSULE PO SCH ×2 (10:49→19:22)
[2017-05-23] MEDS: FINASTERIDE 5 MG TABLET PO SCH (10:49)
[2017-05-23] MEDS: THIAMINE HCL 100 MG TABLET PO SCH (10:49)
[2017-05-23] MEDS: METOPROLOL SUCCINATE 50 MG TAB.SR.24H PO SCH (10:50)
[2017-05-23] MEDS: FOLIC ACID 1 MG TABLET PO SCH (10:50)
[2017-05-23] MEDS: ENOXAPARIN SODIUM INJ 40 MG/0.4 ML DISP.SYRIN SUBCUT SCH (10:51)
[2017-05-23 17:07] LABS: APPEARANCE,URINE CLEAR; BILIRUBIN,URINE NEGATIVE (NEGATIVE); GLUCOSE, URINE NEGATIVE (NEGATIVE); KETONES,URINE TRACE mg/dL (NEGATIVE); LEUKOCYTE ESTERASE,URINE NEGATIVE (NEGATIVE); NITRITE,URINE NEGATIVE (NEGATIVE); PROTEIN,URINE 30 mg/dL (NEGATIVE); URINE SPECIFIC GRAVITY 1.033
[2017-05-23] MEDS: CEFTRIAXONE 1 GM/D5W RTU 1 GM/50 ML RTUPB IV SCH (18:55)
--- NOTE | 2017-05-23 19:24 | XCELERA REPORT ---
[address] [address] Transthoracic Echocardiogram Report Name: REGINO JASSO Age: 72 yrs Gender: Male : 1945 Patient Status: Inpatient Patient Location: [address] [place] [address] Study Date: 05/23/2017 08:55 AM Height: 71 in Weight: 205 lb BSA: 2.1 m2 Procedure: A complete two-dimensional transthoracic echocardiogram was performed (2D, M-mode, spectral and color flow Doppler). The study was technically difficult with many images being suboptimal in quality. Reason For Study: Dyspnea Ordering Physician: ALEXANDER TALLEY Performed By: Manju Giles Interpretation Summary The left ventricular ejection fraction is normal. There is borderline concentric left ventricular hypertrophy. Doppler measurements suggest pseudonormalized left ventricular relaxation, which is associated with grade II/IV or mild to moderate diastolic dysfunction The left ventricle is grossly normal size. Wall motion cannot be accurately commented on, but no definite regional wall motion abnormalities noted. The right ventricular systolic function is normal. The left atrial size is normal. The right atrium is normal in size There is a trace amount of mitral regurgitation There is no mitral valve stenosis. No aortic regurgitation is present. There is no aortic valve stenosis There is a trace or physiologic amount of tricuspid regurgitation Tricuspid regurgitation jet envelope not well defined to measure RV systolic pressure accurately. The aortic root is not well visualized but is probably normal size. The inferior vena cava appeared normal and decreased > 50% with respiration (RAP 5-10 mmHg) There is no pericardial effusion. MMode/2D Measurements & Calculations RVDd: 3.4 cm LVIDd: 4.5 cm FS: 37.8 % Ao root diam: 3.0 cm IVSd: 0.84 cm LVIDs: 2.8 cm EDV(Teich): 92.3 ml LVPWd: 0.89 cmESV(Teich): 29.5 ml Ao root area: 7.0 cm2 EF(Teich): 68.1 % LVOT diam: 2.1 cm LVOT area: 3.5 cm2 Doppler Measurements & Calculations MV E max trinity: MV dec slope: Ao V2 max: LV V1 max P.5 cm/sec 160.5 cm/sec2 153.3 cm/sec 4.8 mmHg MV A max trinity: MV dec time: Ao max PG: LV V1 max: 98.8 cm/sec 0.38 sec 9.4 mmHg 109.6 cm/sec MV E/A: 0.62 ELVIS(V,D): 2.5 cm2 PA V2 max: TR max trinity: 86.4 cm/sec 154.7 cm/sec PA max PG: TR max P.6 mmHg 3.0 mmHg Left Ventricle The left ventricle is grossly normal size. There is borderline concentric left ventricular hypertrophy. The left ventricular ejection fraction is normal. Doppler measurements suggest pseudonormalized left ventricular relaxation, which is associated with grade II/IV or mild to moderate diastolic dysfunction. Wall motion cannot be accurately commented on, but no definite regional wall motion abnormalities noted. Right Ventricle The right ventricle is grossly normal size. There is normal right ventricular wall thickness. The right ventricular systolic function is normal. Atria The right atrium is normal in size. The left atrial size is normal. Interarterial septum not well visualized and not well dopplered. Cannot comment on ASD/PFO presence. Mitral Valve The mitral valve leaflets are sclerotic, but show no functional abnormalities. There is no mitral valve stenosis. There is a trace amount of mitral regurgitation. Aortic Valve The aortic valve is grossly normal. There is no aortic valve stenosis. No aortic regurgitation is present. Tricuspid Valve The tricuspid valve is not well visualized, but is grossly normal. There is no tricuspid stenosis. There is a trace or physiologic amount of tricuspid regurgitation. Tricuspid regurgitation jet envelope not well defined to measure RV systolic pressure accurately. Pulmonic Valve The pulmonic valve is not well visualized. Great Vessels The aortic root is not well visualized but is probably normal size. The inferior vena cava appeared normal and decreased > 50% with respiration (RAP 5-10 mmHg). Effusions There is no pericardial effusion. : ALEXANDER TALLEY > Alexander Talley
[2017-05-24] MEDS: LANSOPRAZOLE 15 MG TAB.RAP.DR PO SCH ×2 (05:15→16:38)
[2017-05-24 05:58] LABS: ABSOLUTE EOSINOPHILS # (AUTO) 0.1 10^3/uL (0.0-0.6); ABSOLUTE LYMPHOCYTES (AUTO) 1.2 10^3/uL (0.5-4.7); ABSOLUTE MONOCYTES (AUTO) 0.5 10^3/uL (0.1-1.4); BASOPHILS % (AUTO) 0.3 % (0-2); EOSINOPHILS % (AUTO) 2.4 % (0-6); HEMATOCRIT 35.5 % (37.9-51.0); HEMOGLOBIN 12.1 g/dL (13.5-17.0); HGB HCT DIFFERENCE 0.8; LYMPHOCYTES % (AUTO) 20.6 % (13-45); MEAN CORPUSCULAR HEMOGLOBIN 32.4 pg (27.0-33.4); MEAN CORPUSCULAR HGB CONC 34.2 g/dL (32.0-36.0); MEAN CORPUSCULAR VOLUME 95 fl (80-97); MONOCYTES % (AUTO) 8.7 % (3-13); RED BLOOD COUNT 3.74 10^6/uL (4.35-5.55); WHITE BLOOD COUNT 5.8 10^3/uL (4.0-10.5)
[2017-05-24] MEDS: FINASTERIDE 5 MG TABLET PO SCH (11:17)
[2017-05-24] MEDS: METOPROLOL SUCCINATE 50 MG TAB.SR.24H PO SCH (11:17)
[2017-05-24] MEDS: THIAMINE HCL 100 MG TABLET PO SCH (11:18)
[2017-05-24] MEDS: FOLIC ACID 1 MG TABLET PO SCH (11:18)
[2017-05-24] MEDS: ENOXAPARIN SODIUM INJ 40 MG/0.4 ML DISP.SYRIN SUBCUT SCH (11:18)
[2017-05-24] MEDS: DOCUSATE SODIUM 100 MG CAPSULE PO SCH ×2 (11:23→17:47)
[2017-05-24] MEDS: DIPHENOXYLATE HCL/ATROP SULF 2.5-0.025 MG TABLET PO PRN ×2 (12:23→19:34)
--- NOTE | 2017-05-24 13:06 | DRAGON STRESS TEST REPORT ---
INTRAVENOUS LEXISCAN CARDIOLITE STRESS TEST USING SINGLE PHOTON EMMISION COMPUTERIZED TOMOGRAPHIC. INDICATION : Dyspnea, history of CAD CARDIAC RISK FACTORS: Hypertension, dyslipidemia RESTING EKG: Sinus rhythm, no baseline ST segment changes noted STRESS EKG: No significant changes noted with LexiScan bolus REASON FOR TERMINATION: Protocol. PROCEDURE REPORT: Baseline heart rate 68 beats per minute with blood pressure of 135/67. Patient had no significant complaints. Heart rate at 2 minutes post bolus 86 with a blood pressure of 101/51 3 minutes post bolus heart rate 85 with blood pressure of 106/55. No significant EKG changes were noted. Patient had no significant complaints during the procedure or postprocedure. Patient injected with Aminophyllin 75 mg at 3 minutes or later after Lexiscan bolus. CONCLUSIONS: Normal EKG and hemodynamic response to IV LexiScan. NUCLEAR DATA: At rest the patient was given [10.13] millicuries of technetium 99 sestamibi injected intravenously. As per protocol rest gated SPECT images were obtained. Subsequently the patient was given intravenous LexiScan at a dose of 0.4 mg in 5 mL intravenously, followed by flush with normal saline. Subsequently the stress dose of [30.7] millicuries of technetium 99 sestamibi was injected intravenously. As per protocol stress gated images were obtained. NUCLEAR INTERPRETATION: Both raw and processed data were used for interpretation. Visual, qualitative, computer-generated quantitative data was used. There was good myocardial uptake of technetium compound. Motion artifact and soft tissue attenuations were noted. Increased visceral uptake was noted. Small area of mild transient perfusion defect noted in the mid and distal inferior wall, SDS score of 2. No definitive areas of fixed perfusion defect or scars noted. EKG gated imaging showed LV EF at 12.79 %, rest and stress gated EF similar visually. T. I D. ratio was 1.08. Lung heart ratio noted to be within normal limits 0.25. No significant extracardiac and abnormal radiotracer activities were noted. RV free wall uptake was noted to be WNL. IMPRESSION: Also refer to comments under nuclear interpretation. Also test results needs to be interpreted in the context of pretest probability. 1. Small area of mild transient perfusion defect noted in the mid and distal inferior wall, SDS score of 2, consistent with mild ischemia. 2. There is no definitive scintigraphic evidence of myocardial infarction/scar. 3. EKG gated imaging shows left ventricular ejection fraction of approximately 41%. Correlate with echocardiogram derived LVEF 4. Clinical correlation requested as occasionally worse disease or balanced ischemia could be missed. In approximately 10% of the cases Lexiscan may not cause adequate vasodilatory stress. RECOMMENDATIONS: Aggressive risk factor modification, medical therapy. Clinical correlation with echocardiogram derived ejection fraction. Inability to exercise by itself can lead to increased cardiovascular event risks. Consider cardiology consultation and or follow-up if clinically indicated. I AM AVAILABLE FOR CARDIOLOGY CONSULTATION AND FOLLOWUP IF REQUESTED BY PMD Alexander Esparza M.D., [employer] Train Dispatcher assembly line machine operator, Board certified in cardiovascular diseases, Nuclear cardiology, Echocardiography Cardiac CT and cardiac MRI Ph. [phone] [facility] CENTERNereyda
[2017-05-24] MEDS ORDERED: ONDANSETRON HCL INJ/PF 4 MG/2 ML SDV IV PRN (14:00)
--- NOTE | 2017-05-24 17:27 | PDOC DISCHARGE SUMMARY ---
General - Admit/Disc Date/PCP Admission Date/Primary Care Provider: 05/22/17 17:29 RUDY SANTIAGO MD Discharge Date: 05/24/17 - Discharge Diagnosis (1) Rhabdomyolysis Is this a current diagnosis for this admission?: Yes Summary: Patient is getting better denied any other symptoms and patient's CPK level is all coming down (2) Hypertension Is this a current diagnosis for this admission?: Yes Summary: Continues to metroprolol (3) Paroxysmal atrial fibrillation Is this a current diagnosis for this admission?: Yes Summary: Currently in sinus rhythm follow with the cardiology Dr. Esparza (4) Shortness of breath Is this a current diagnosis for this admission?: Yes Summary: All workup is negative including the CT angiogramAnd Cardiolite stress test is also stable per Dr. Esparza and suggest the continues to beta-abdifatah and a statin after patient's rhabdo is getting better (5) Weakness Is this a current diagnosis for this admission?: Yes Summary: Patient's more in the hallway without any problems - Additional Information Resuscitation Status: Full Code Discharge Diet: Cardiac Discharge Activity: Activity As Tolerated Home Medications: Docusate Sodium [Colace 100 mg Capsule] 200 mg PO BID 05/22/17 Finasteride [Proscar 5 mg Tablet] 5 mg PO DAILY 05/22/17 Folic Acid [Folvite 1 mg Tablet] 1 mg PO DAILY 05/22/17 Lubiprostone [Amitiza 24 Mcg Capsule] 24 mcg PO BIDACBS 05/22/17 Metoprolol Succinate [Toprol Xl 50 mg Tab.sr] 50 mg PO DAILY 05/22/17 Thiamine HCl [Thiamine 100 mg Tablet] 100 mg PO DAILY 05/22/17 History of Present Illness History of Present Illness: REGINO JASSO is a 72 year old male There is a 72-year-old male present in the emergency department with a complaint of chest pain shortness of the breath and patient was initially found to rhabdomyolysis while patient was working outside and admitting in the hospital Hospital Course Hospital Course: This 72-year-old male present in the emergency department with the complaint of chest pain shortness of the breath and patient's CPK level is highAnd patients at this point underwent for the extensive workup including a CT angiogram was negative for PE and patient also underwent for the Cardiolite stress test per patch machine operator and was all stable and suggest the medical management Patient also giving the IV fluid and patient's response very well with that and patients denied any weakness any more patients denied any chest pain no shortness of the breathAnd patient also walking the hallway without any problems and patient's move around and patient's p.o. intake is fair Other than that patient was complaining some upset stomach but other than that some mild loose stool but patient was given some Imodium and patients denied any more symptoms and denied any abdominal pain no nausea no vomiting Patient all culture was also negative Physical Exam Vital Signs: Temp Pulse Resp BP Pulse Ox 98.2 F 65 16 109/73 98 05/24/17 12:28 05/24/17 12:28 05/24/17 12:28 05/24/17 12:28 05/24/17 12:28 Intake & Output 05/23/17 05/24/17 05/25/17 06:59 06:59 06:59 Intake Total 700 1947 118 Output Total 0 Balance 700 1947 118 Weight 78.1 kg 79.3 kg General appearance: PRESENT: no acute distress, well-developed, well-nourished Head exam: PRESENT: atraumatic, normocephalic Eye exam: PRESENT: conjunctiva pink, EOMI, PERRLA. ABSENT: scleral icterus Ear exam: PRESENT: normal external ear exam Mouth exam: PRESENT: moist, tongue midline Neck exam: PRESENT: full ROM. ABSENT: carotid bruit, JVD, lymphadenopathy, thyromegaly Respiratory exam: PRESENT: clear to auscultation radames Cardiovascular exam: PRESENT: RRR. ABSENT: diastolic murmur, rubs, systolic murmur Pulses: PRESENT: normal dorsalis pedis pul, +2 pedal pulses bilateral Vascular exam: PRESENT: normal capillary refill GI/Abdominal exam: PRESENT: normal bowel sounds, soft. ABSENT: distended, guarding, mass, organolmegaly, rebound, tenderness Rectal exam: PRESENT: deferred Neurological exam: PRESENT: alert, awake, oriented to person, oriented to place , oriented to time, oriented to situation, CN II-XII grossly intact. ABSENT: motor sensory deficit Psychiatric exam: PRESENT: appropriate affect, normal mood. ABSENT: homicidal ideation, suicidal ideation Skin exam: PRESENT: dry, intact, warm. ABSENT: cyanosis, rash Results Laboratory Results: 05/24/17 05:28 05/23/17 03:14 05/24/17 05:28 WBC 5.8 RBC 3.74 L Hgb 12.1 L Hct 35.5 L MCV 95 MCH 32.4 MCHC 34.2 RDW 14.0 Plt Count 131 L Seg Neutrophils % 68.0 Lymphocytes % 20.6 Monocytes % 8.7 Eosinophils % 2.4 Basophils % 0.3 Absolute Neutrophils 4.0 Absolute Lymphocytes 1.2 Absolute Monocytes 0.5 Absolute Eosinophils 0.1 Absolute Basophils 0.0 05/22/17 05/22/17 05/23/17 20:51 20:51 03:14 Creatine Kinase 2374 H CK-MB (CK-2) 15.90 H 13.30 H Troponin I < 0.012 < 0.012 NT-Pro-B Natriuret Pep 05/23/17 05/23/17 05/24/17 03:14 09:38 05:28 Creatine Kinase 2115 H 1385 H CK-MB (CK-2) 10.60 H Troponin I < 0.012 NT-Pro-B Natriuret Pep 241 Impressions: Chest/Abdomen CTA 05/22/17 00:00 IMPRESSION: NORMAL CTA OF THE CHEST. NO PULMONARY EMBOLI. Chest X-Ray 05/22/17 14:45 IMPRESSION: NO SIGNIFICANT RADIOGRAPHIC FINDING IN THE CHEST. Head CT 05/22/17 16:37 IMPRESSION: NO ACUTE INTRACRANIAL PROCESS. NO SIGNIFICANT CHANGE FROM PRIOR STUDY. Plan Time Spent: Greater than 30 Minutes - Discussed with the patient if any increasing any abdominal pain nausea vomiting or any chest pain is to follow the ERPatient was discharged home with the stable conditions continues to current medications advised to patients drink more water and used over-the- counter Prilosec and follow with the Dr. Santiago in a one-week and needs to further evaluate
[2017-05-24 18:14] LABS: ALANINE AMINOTRANSFERASE 113 U/L (21-72); ALKALINE PHOSPHATASE 77 U/L (38-126); ANION GAP 9 (5-19); ASPARTATE AMINO TRANSFERASE 130 U/L (17-59); BILIRUBIN,DIRECT 0.4 mg/dL (0.0-0.4); BILIRUBIN,TOTAL 0.7 mg/dL (0.2-1.3); BLOOD UREA NITROGEN 14 mg/dL (7-20); CALCIUM 9.4 mg/dL (8.4-10.2); CARBON DIOXIDE 29 mmol/L (22-30); CHLORIDE 102 mmol/L (98-107); CREATININE RESULT 0.74 mg/dL (0.52-1.25); GLUCOSE 85 mg/dL (75-110); POTASSIUM 3.1 mmol/L (3.6-5.0); SODIUM 139.7 mmol/L (137-145); TOTAL PROTEIN 6.8 g/dL (6.3-8.2)
[2017-05-24] MEDS ORDERED: POTASSI CL 20 MEQ/NS 1L 1,000 ML IV PRN (19:30)
[2017-05-24] MEDS: MAGNESIUM HYDROXIDE SUSP 30 ML UDCUP PO PRN ×2 (19:34→20:30)
[2017-05-24] MEDS ORDERED: POTASSIUM CHLORIDE 10 MEQ TABLET.SA PO ONE (20:00)
--- NOTE | 2017-05-24 20:22 | PDOC PROGRESS REPORT ---
Subjective Progress Note for:: 05/24/17 Subjective:: Patient seems to be doing better with gradual improvement. Pt is denying any chest arm or neck discomfort. Patient denying any PND, orthopnea. Patient denied any sustained palpitations, dizziness, syncope, near syncope. Patient denying any fever chills. Patient denying any other significant discomfort. Patient is maintaining sinus rhythm. Review of systems: Rest review of systems negative. Nuclear stress test procedure was explained to the patient in detail. Risks benefits were discussed and informed consent was obtained. Alternatives were discussed. Patient informed that based on risk factors, physical exam, lab data findings and symptoms there is at least intermediate probability of underlying CAD. Nuclear stress test procedure was therefore scheduled. Medications: Medications have been reviewed. Physical Exam Vital Signs: Temp Pulse Resp BP Pulse Ox 98.2 F 69 16 109/73 98 05/24/17 12:28 05/24/17 19:00 05/24/17 12:28 05/24/17 12:28 05/24/17 12:28 Intake & Output 05/23/17 05/24/17 05/25/17 06:59 06:59 06:59 Intake Total 700 1947 1558 Output Total 0 Balance 700 1947 1558 Weight 78.1 kg 79.3 kg Exam: GENERAL: well-nourished and in no acute distress. Alert and oriented x3 HEAD: Atraumatic, normocephalic. EYES: Pupils equal round and reactive to light, extraocular movements intact, sclera anicteric, conjunctiva are normal. ENT: TMs normal, nares patent, oropharynx clear without exudates. Moist mucous membranes. No oral ulcerations or bleeding gums noted NECK: supple without lymphadenopathy. Trachea is central. No cervical or axillary lymphadenopathy noted. Carotids are 2+, JVD WNL LUNGS: Respiration seems nonlabored, no significant accessory muscle action noted. Breath sounds clear to auscultation bilaterally and equal noted. No wheezes rales or rhonchi noted. No significant dullness noted on percussion. CHEST: Palpation of the chest wall shows no significant chest wall tenderness. No other significant abnormalities noted. HEART: [place] [employer]TE[employer]CE TRA[employer]ER, No PSH, 1/6 TONY aortic area, 1/6 chopra systolic murmur mitral area, no rubs, no gallops. ABDOMEN: Soft, no significant tenderness appreciated, normoactive bowel sounds. No guarding, no rebound. No rigidity noted . No masses appreciated. EXTREMITIES: Pedal pulses are 1-2+, no calf tenderness noted. No clubbing or cyanosis.trace to 1+ pedal edema noted NEUROLOGICAL: Focused neurological exam showed no significant neurologic deficit. Normal speech, no focal weakness appreciated. PSYCH: Normal mood, normal affect. Judgment and insight within normal limits. SKIN: No significant ecchymosis, rash, ulcerations or signs of pruritus noted. MUSCULOSKELETAL EXAM: No significant joint swelling noted. Results Laboratory Results: 05/24/17 05:28 05/24/17 17:49 05/24/17 05/24/17 05:28 17:49 WBC 5.8 RBC 3.74 L Hgb 12.1 L Hct 35.5 L MCV 95 MCH 32.4 MCHC 34.2 RDW 14.0 Plt Count 131 L Seg Neutrophils % 68.0 Lymphocytes % 20.6 Monocytes % 8.7 Eosinophils % 2.4 Basophils % 0.3 Absolute Neutrophils 4.0 Absolute Lymphocytes 1.2 Absolute Monocytes 0.5 Absolute Eosinophils 0.1 Absolute Basophils 0.0 Sodium 139.7 Potassium 3.1 L Chloride 102 Carbon Dioxide 29 Anion Gap 9 BUN 14 Creatinine 0.74 Est GFR ( Amer) > 60 Est GFR (Non-Af Amer) > 60 Glucose 85 Calcium 9.4 Total Bilirubin 0.7 AST 130 H ALT 113 H Alkaline Phosphatase 77 Total Protein 6.8 Albumin 4.0 05/22/17 05/22/17 05/23/17 20:51 20:51 03:14 Creatine Kinase 2374 H CK-MB (CK-2) 15.90 H 13.30 H Troponin I < 0.012 < 0.012 NT-Pro-B Natriuret Pep 05/23/17 05/23/17 05/24/17 03:14 09:38 05:28 Creatine Kinase 2115 H 1385 H CK-MB (CK-2) 10.60 H Troponin I < 0.012 NT-Pro-B Natriuret Pep 241 Impressions: Chest/Abdomen CTA 05/22/17 00:00 IMPRESSION: NORMAL CTA OF THE CHEST. NO PULMONARY EMBOLI. Chest X-Ray 05/22/17 14:45 IMPRESSION: NO SIGNIFICANT RADIOGRAPHIC FINDING IN THE CHEST. Head CT 05/22/17 16:37 IMPRESSION: NO ACUTE INTRACRANIAL PROCESS. NO SIGNIFICANT CHANGE FROM PRIOR STUDY. Assessment & Plan - Diagnosis (1) Shortness of breath Is this a current diagnosis for this admission?: Yes (2) Abnormal cardiac enzyme level Is this a current diagnosis for this admission?: Yes (3) Hypertension Qualifiers: Hypertension type: essential hypertension Qualified Code(s): I10 - Essential (primary) hypertension Is this a current diagnosis for this admission?: Yes (4) Coronary artery disease Qualifiers: Coronary Disease-Associated Artery/Lesion type: [place] artery Associated angina: angina presence unspecified Is this a current diagnosis for this admission?: Yes - Notes Notes: Dyspnea: Nuclear stress showed a small area of mild ischemia. Patient asymptomatic. This could have been an ischemic event symptom in this patient. Patient questions were answered. Coronary artery disease: Patient noted to have coronary calcification. This indicates underlying CAD. Discussed stress test results with the patient. Hypertension: Recommend good control of hypertension. Blood pressure goal should be 135/85 or less. Recommend beta-blockers/VINH/ARB VINH inhibitor/ARB as preferred agent. Abnormal cardiac enzymes: Initial troponin is normal others are pending. Total CK and CK-MB elevated and could represent low level rhabdomyolysis. Patient noted to have elevated total CK and CK-MB but normal troponin I. Feel that patient has low-grade rhabdomyolysis. Continue to observe patient. Make sure patient is well hydrated. Abnormal liver function test: Patient has a history of alcoholism in the past. Possible alcoholic hepatitis, cirrhosis etc. further evaluation is being left to the emt driver. - Time Time with patient: Greater than 35 minutes - In the morning nuclear stress test procedure, risks benefits, alternatives were discussed. Patient seen during the stress test. Patient also seen after stress test when results were discussed with the patient in detail. Patient's questions were answered. Nuclear stress test results were discussed with the patient. Patient was informed that a small area of mild pharmacologic stress-induced ischemia noted. Overall the stress test was towards low risk. Patient informed that occasionally worse ischemia could be missed. However based on the current study results, would recommend aggressive risk factor modification and medical therapy. Patient informed that best option under given condition is medical therapy. However if patient continues with chest pain or other ischemia equivalent symptoms in spite of a good medical regimen then then cardiac catheterization should be considered. Right now, recommendations are for aggressive risk factor modification and optimization of medical management. More than 50% of the time spent coordinating care, discussing management plans with involved caregivers. Management plans discussed with involved personnels. Medical decision making was of moderate to high complexity, patient's has multiple comorbidities. CODE STATUS was discussed, patient remains full code. Surrogate decision-maker unchanged. Multiple medical problems were addressed. Medications reviewed and adjusted accordingly: Yes
[2017-05-24] MEDS: FAMOTIDINE 20 MG TABLET PO SCH (21:04)
--- NOTE | 2017-05-24 22:44 | Physician Advisory Note ---
Physician Advisor ProgressNote .: Pursuant to the plan for [facility], I have reviewed the medical record for this patient. Physician Advisor Statement: If possible, now that hospital workup is done, please document in DCS/Addendum the most likely causes of the patient's SOB & weakness. (These findings are considered symptoms, not specific diagnoses, from coding perspective.) Thanks! CK
[2017-05-25] MEDS: MAGNESIUM HYDROXIDE SUSP 30 ML UDCUP PO PRN (03:58)
[2017-05-25 06:24] LABS: HEMATOCRIT 34.1 % (37.9-51.0); HEMOGLOBIN 11.6 g/dL (13.5-17.0); HGB HCT DIFFERENCE 0.7; MEAN CORPUSCULAR HEMOGLOBIN 32.9 pg (27.0-33.4); MEAN CORPUSCULAR HGB CONC 34.1 g/dL (32.0-36.0); MEAN CORPUSCULAR VOLUME 97 fl (80-97); RED BLOOD COUNT 3.53 10^6/uL (4.35-5.55); RED CELL DISTRIBUTION WIDTH 14.3 % (11.5-14.0); WHITE BLOOD COUNT 4.8 10^3/uL (4.0-10.5)
[2017-05-25] MEDS: LANSOPRAZOLE 15 MG TAB.RAP.DR PO SCH (06:24)
[2017-05-25 06:41] LABS: ALANINE AMINOTRANSFERASE 86 U/L (21-72); ALKALINE PHOSPHATASE 61 U/L (38-126); ANION GAP 5 (5-19); ASPARTATE AMINO TRANSFERASE 90 U/L (17-59); BILIRUBIN,DIRECT 0.3 mg/dL (0.0-0.4); BILIRUBIN,TOTAL 0.9 mg/dL (0.2-1.3); BLOOD UREA NITROGEN 13 mg/dL (7-20); CALCIUM 8.5 mg/dL (8.4-10.2); CARBON DIOXIDE 26 mmol/L (22-30); CHLORIDE 106 mmol/L (98-107); CREATININE RESULT 0.71 mg/dL (0.52-1.25); GLUCOSE 103 mg/dL (75-110); LIPASE 109.7 U/L (23-300); POTASSIUM 3.7 mmol/L (3.6-5.0); TOTAL PROTEIN 5.5 g/dL (6.3-8.2)
[2017-05-25] MEDS: ENOXAPARIN SODIUM INJ 40 MG/0.4 ML DISP.SYRIN SUBCUT SCH (09:49)
[2017-05-25] MEDS: FINASTERIDE 5 MG TABLET PO SCH (09:50)
[2017-05-25] MEDS: FAMOTIDINE 20 MG TABLET PO SCH (09:50)
[2017-05-25] MEDS: METOPROLOL SUCCINATE 50 MG TAB.SR.24H PO SCH (09:50)
[2017-05-25] MEDS: FOLIC ACID 1 MG TABLET PO SCH (09:50)
[2017-05-25] MEDS: THIAMINE HCL 100 MG TABLET PO SCH (09:50)
[2017-05-25] MEDS: DOCUSATE SODIUM 100 MG CAPSULE PO SCH (09:57)
[2017-05-25 11:07] VITALS: BP 155/85
--- NOTE | 2017-05-25 13:02 | PDOC PROGRESS REPORT ---
Subjective Progress Note for:: 05/25/17 Subjective:: Patient seems to be doing better with gradual improvement. Pt is denying any chest arm or neck discomfort. Patient denying any PND, orthopnea. Patient denied any sustained palpitations, dizziness, syncope, near syncope. Patient denying any fever chills. Patient denying any other significant discomfort. Patient is maintaining sinus rhythm. Review of systems: Rest review of systems negative. Nuclear test results were discussed with the patient. Medications: Medications have been reviewed. Physical Exam Vital Signs: Temp Pulse Resp BP Pulse Ox 97.8 F 61 12 155/85 H 100 05/25/17 11:03 05/25/17 11:03 05/25/17 11:03 05/25/17 11:03 05/25/17 11:03 Intake & Output 05/24/17 05/25/17 05/26/17 06:59 06:59 06:59 Intake Total 1947 2848 Balance 1947 2848 Weight 79.3 kg 80.7 kg Results Laboratory Results: 05/25/17 05:08 05/25/17 05:08 05/24/17 05/25/17 05/25/17 17:49 05:08 05:08 WBC 4.8 RBC 3.53 L Hgb 11.6 L Hct 34.1 L MCV 97 MCH 32.9 MCHC 34.1 RDW 14.3 H Plt Count 121 L Sodium 139.7 137.0 Potassium 3.1 L 3.7 Chloride 102 106 Carbon Dioxide 29 26 Anion Gap 9 5 BUN 14 13 Creatinine 0.74 0.71 Est GFR ( Amer) > 60 > 60 Est GFR (Non-Af Amer) > 60 > 60 Glucose 85 103 Calcium 9.4 8.5 Total Bilirubin 0.7 0.9 AST 130 H 90 H ALT 113 H 86 H Alkaline Phosphatase 77 61 Total Protein 6.8 5.5 L Albumin 4.0 3.0 L Lipase 109.7 05/22/17 05/22/17 05/23/17 20:51 20:51 03:14 Creatine Kinase 2374 H CK-MB (CK-2) 15.90 H 13.30 H Troponin I < 0.012 < 0.012 NT-Pro-B Natriuret Pep 05/23/17 05/23/17 05/24/17 03:14 09:38 05:28 Creatine Kinase 2115 H 1385 H CK-MB (CK-2) 10.60 H Troponin I < 0.012 NT-Pro-B Natriuret Pep 241 Impressions: Chest/Abdomen CTA 05/22/17 00:00 IMPRESSION: NORMAL CTA OF THE CHEST. NO PULMONARY EMBOLI. Chest X-Ray 05/22/17 14:45 IMPRESSION: NO SIGNIFICANT RADIOGRAPHIC FINDING IN THE CHEST. Head CT 05/22/17 16:37 IMPRESSION: NO ACUTE INTRACRANIAL PROCESS. NO SIGNIFICANT CHANGE FROM PRIOR STUDY. Assessment & Plan - Diagnosis (1) Shortness of breath Is this a current diagnosis for this admission?: Yes (2) Abnormal cardiac enzyme level Is this a current diagnosis for this admission?: Yes (3) Hypertension Qualifiers: Hypertension type: essential hypertension Qualified Code(s): I10 - Essential (primary) hypertension Is this a current diagnosis for this admission?: Yes (4) Coronary artery disease Qualifiers: Coronary Disease-Associated Artery/Lesion type: [place] artery Associated angina: angina presence unspecified Is this a current diagnosis for this admission?: Yes - Notes Notes: Dyspnea: Possibly ischemia related since patient was noted to have small area of mild ischemia. Medical management was discussed with the patient. Nuclear stress test results reviewed with the patient. Coronary artery disease: Patient noted to have coronary calcification. This indicates underlying CAD. Nuclear stress test and 2D echocardiogram results reviewed with the patient. Hypertension: Recommend good control of hypertension. Blood pressure goal should be 135/85 or less. Recommend beta-blockers/VINH/ARB VINH inhibitor/ARB as preferred agent. Abnormal cardiac enzymes: Initial troponin is normal others are pending. Total CK and CK-MB elevated and could represent low level rhabdomyolysis. Patient noted to have elevated total CK and CK-MB but normal troponin I. Feel that patient has low-grade rhabdomyolysis. Continue to observe patient. Make sure patient is well hydrated. Statins on hold. Abnormal liver function test: Patient has a history of alcoholism in the past. Possible alcoholic hepatitis, cirrhosis etc. further evaluation is being left to the soap chipper. - Time Time with patient: 15-25 minutes - CODE STATUS was discussed, patient remains full code. Surrogate decision-maker unchanged. Multiple medical problems were addressed. More than 50% of the time spent coordinating care, discussing management plans with involved caregivers. Management plans discussed with involved personnels. Medical decision making was of moderate to high complexity , patient's has multiple comorbidities. Medications reviewed and adjusted accordingly: Yes
--- NOTE | 2017-05-25 14:59 | RADIOLOGY REPORT (SQ) ---
EXAM DESCRIPTION: U/S ABDOMEN COMPLETE W/O DOP COMPLETED DATE/TIME: 05/24/2017 8:23 pm REASON FOR STUDY: ABNORMAL LFTS COMPARISON: None. TECHNIQUE: Dynamic and static grayscale images acquired of the abdomen and recorded on PACS. [place] vannessa selected color Doppler and spectral images recorded. LIMITATIONS: None. FINDINGS: PANCREAS: No masses. Visualized pancreatic duct normal caliber. LIVER: 2.4 cm cyst in the posterior right lobe. Mild increased Echotexture consistent with fatty inf iltration. No dilated intrahepatic bile ducts. LIVER VASCULATURE: Normal directional flow of the main portal vein and hepatic veins. GALLBLADDER: No stones. Normal wall thickness. No pericholecystic fluid. ULTRASOUND-DETECTED CLEMENTE'S SIGN: Negative. INTRAHEPATIC DUCTS AND COMMON DUCT: CBD and intrahepatic ducts normal caliber. No filling defects. INFERIOR VENA CAVA: Normal flow. AORTA: No aneurysm. RIGHT KIDNEY:Normal size. Normal echogenicity. No solid or suspicious masses. No hydronephrosis. No c alcifications. LEFT KIDNEY: Normal size. Normal echogenicity. No solid or suspicious masses. No hydronephrosis. No calcifications. SPLEEN: Normal size. No solid masses. PERITONEAL AND PLEURAL SPACES: No ascites or effusions. OTHER: No other significant finding. IMPRESSION: 2.4 cm cyst in the posterior right hepatic lobe. Mild increased hepatic Echotexture con sistent with fatty infiltration. No acute findings. TECHNICAL DOCUMENTATION: JOB ID: [id number] [employer] All Rights Reserved
--- NOTE | 2017-05-26 12:42 | PDOC PROGRESS REPORT ---
Subjective Progress Note for:: 05/23/17 Subjective:: Patient seems to be doing better with gradual improvement. Pt is denying any chest arm or neck discomfort. Patient denying any PND, orthopnea. Patient denied any sustained palpitations, dizziness, syncope, near syncope. Patient denying any fever chills. Patient denying any other significant discomfort. Patient is maintaining sinus rhythm. Review of systems: Rest review of systems negative. Medications: Medications have been reviewed. Physical Exam Vital Signs: Temp Pulse Resp BP Pulse Ox 98.2 F 63 16 155/85 H 100 05/23/17 11:49 05/23/17 11:49 05/23/17 11:49 05/23/17 11:49 05/23/17 11:49 Intake & Output 05/22/17 05/23/17 05/24/17 06:59 06:59 06:59 Intake Total 700 300 Output Total 0 Balance 700 300 Weight 78.1 kg Exam: GENERAL: well-nourished and in no acute distress. Alert and oriented x3 HEAD: Atraumatic, normocephalic. EYES: Pupils equal round and reactive to light, extraocular movements intact, sclera anicteric, conjunctiva are normal. ENT: TMs normal, nares patent, oropharynx clear without exudates. Moist mucous membranes. No oral ulcerations or bleeding gums noted NECK: supple without lymphadenopathy. Trachea is central. No cervical or axillary lymphadenopathy noted. Carotids are 2+, JVD WNL LUNGS: Respiration seems nonlabored, no significant accessory muscle action noted. Breath sounds clear to auscultation bilaterally and equal noted. No wheezes rales or rhonchi noted. No significant dullness noted on percussion. CHEST: Palpation of the chest wall shows no significant chest wall tenderness. No other significant abnormalities noted. 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 ABDOMEN: Soft, no significant tenderness appreciated, normoactive bowel sounds. No guarding, no rebound. No rigidity noted . No masses appreciated. EXTREMITIES: Pedal pulses are 1-2+, no calf tenderness noted. No clubbing or cyanosis.trace to 1+ pedal edema noted NEUROLOGICAL: Focused neurological exam showed no significant neurologic deficit. Normal speech, no focal weakness appreciated. PSYCH: Normal mood, normal affect. Judgment and insight within normal limits. SKIN: No significant ecchymosis, rash, ulcerations or signs of pruritus noted. MUSCULOSKELETAL EXAM: No significant joint swelling noted. Results Laboratory Results: 05/23/17 03:14 05/23/17 03:14 05/22/17 05/23/17 05/23/17 17:58 03:14 03:14 WBC 6.8 RBC 3.96 L Hgb 13.0 L Hct 37.8 L MCV 96 MCH 32.8 MCHC 34.3 RDW 14.8 H Plt Count 158 Seg Neutrophils % 67.6 Lymphocytes % 21.1 Monocytes % 9.5 Eosinophils % 1.4 Basophils % 0.4 Absolute Neutrophils 4.6 Absolute Lymphocytes 1.4 Absolute Monocytes 0.6 Absolute Eosinophils 0.1 Absolute Basophils 0.0 Sodium 141.0 Potassium 3.6 Chloride 106 Carbon Dioxide 21 L Anion Gap 14 BUN 22 H Creatinine 0.92 Est GFR ( Amer) > 60 Est GFR (Non-Af Amer) > 60 Glucose 99 Calcium 8.6 Total Bilirubin 1.3 AST 110 H ALT 88 H Alkaline Phosphatase 68 Ammonia < 8.7 L Total Protein 6.4 Albumin 3.7 05/22/17 05/22/17 05/23/17 20:51 20:51 03:14 Creatine Kinase 2374 H CK-MB (CK-2) 15.90 H 13.30 H Troponin I < 0.012 < 0.012 NT-Pro-B Natriuret Pep 05/23/17 05/23/17 03:14 09:38 Creatine Kinase 2115 H CK-MB (CK-2) 10.60 H Troponin I < 0.012 NT-Pro-B Natriuret Pep 241 EKG Comments: Telemetry shows sinus rhythm, no sustained tachycardia or bradycardia arrhythmias noted Impressions: Chest/Abdomen CTA 05/22/17 00:00 IMPRESSION: NORMAL CTA OF THE CHEST. NO PULMONARY EMBOLI. Chest X-Ray 05/22/17 14:45 IMPRESSION: NO SIGNIFICANT RADIOGRAPHIC FINDING IN THE CHEST. Head CT 05/22/17 16:37 IMPRESSION: NO ACUTE INTRACRANIAL PROCESS. NO SIGNIFICANT CHANGE FROM PRIOR STUDY. Assessment & Plan - Diagnosis (1) Shortness of breath Is this a current diagnosis for this admission?: Yes (2) Abnormal cardiac enzyme level Is this a current diagnosis for this admission?: Yes (3) Hypertension Qualifiers: Hypertension type: essential hypertension Qualified Code(s): I10 - Essential (primary) hypertension Is this a current diagnosis for this admission?: Yes (4) Coronary artery disease Qualifiers: Coronary Disease-Associated Artery/Lesion type: [place] artery Associated angina: angina presence unspecified Is this a current diagnosis for this admission?: Yes (5) Rhabdomyolysis Qualifiers: Rhabdomyolysis type: non-traumatic Qualified Code(s): M62.82 - Rhabdomyolysis Is this a current diagnosis for this admission?: Yes - Notes Notes: Dyspnea: Possible cardiac dysrhythmia related, possible underlying CAD and ischemia equivalent symptom, pulmonary embolism and CHF who ruled out by a normal BNP level, no evidence of CHF and negative CTA. Patient will be scheduled for a nuclear stress test, 2D echo results reviewed. Patient questions answered. Coronary artery disease: Patient noted to have coronary calcification. This indicates underlying CAD. To be further evaluated with a nuclear stress test. Hypertension: Recommend good control of hypertension. Blood pressure goal should be 135/85 or less. Recommend beta-blockers/VINH/ARB VINH inhibitor/ARB as preferred agent. Abnormal cardiac enzymes: Initial troponin is normal others are pending. Total CK and CK-MB elevated and could represent low level rhabdomyolysis. Patient noted to have elevated total CK and CK-MB but normal troponin I. Feel that patient has low-grade rhabdomyolysis. Continue to observe patient. Make sure patient is well hydrated. Abnormal liver function test: Patient has a history of alcoholism in the past. Possible alcoholic hepatitis, cirrhosis etc. further evaluation is being left to the internal medicine nurse practitioner. - Time Time with patient: Greater than 35 minutes - CODE STATUS was discussed, patient remains full code. Surrogate decision-maker unchanged. Multiple medical problems were addressed. More than 50% of the time spent coordinating care, discussing management plans with involved caregivers. Management plans discussed with involved personnels. Medical decision making was of moderate to high complexity, patient's has multiple comorbidities. Medications reviewed and adjusted accordingly: Yes
== END 2017-05-25 11:51 | disposition home or self-care (01) | DRG 558 ==
LOC: ER 14:17 → EH 17:29 → 3S 22:29
PROVIDERS: ADMIT Family Medicine; ATTEND Family Medicine
DX: M62.82 Rhabdomyolysis (principal); I10 Essential (primary) hypertension; I25.10 Atherosclerotic heart disease of native coronary artery without angina pectoris; I48.0 Paroxysmal atrial fibrillation; E78.5 Hyperlipidemia, unspecified; K21.9 Gastro-esophageal reflux disease without esophagitis; F32.9 Major depressive disorder, single episode, unspecified; D64.9 Anemia, unspecified; F10.21 Alcohol dependence, in remission; Z79.899 Other long term (current) drug therapy
CPT/HCPCS: 36415; 70450; 71010; 71275; 76700; 78452; 80048; 80053; 80076; 81001; 82140; 82550; 82553; 83690; 83880; 84484; 85025; 85027; 87040; 87086; 87493; 93005; 93010; 93017; 93306; 99285; A9500; J0280; J0696; J1650; J2785; J3480; J3490; J7030; Q9969

== ENCOUNTER 2017-07-18 08:14 | Observation (INO) | payer MEDICARE, OTHER ==
[2017-07-18] MEDS ORDERED: NORMAL SALINE 1000 ML 1,000 ML IV ONE (09:13)
[2017-07-18 09:21] LABS: ABSOLUTE EOSINOPHILS # (AUTO) 0.1 10^3/uL (0.0-0.6); ABSOLUTE LYMPHOCYTES (AUTO) 1.1 10^3/uL (0.5-4.7); ABSOLUTE MONOCYTES (AUTO) 0.4 10^3/uL (0.1-1.4); ABSOLUTE NEUT (AUTO) 5.1 10^3/uL (1.7-8.2); BASOPHILS % (AUTO) 0.7 % (0-2); EOSINOPHILS % (AUTO) 0.9 % (0-6); HEMATOCRIT 36.4 % (37.9-51.0); HEMOGLOBIN 12.4 g/dL (13.5-17.0); HGB HCT DIFFERENCE 0.8; MEAN CORPUSCULAR HGB CONC 34.1 g/dL (32.0-36.0); MEAN CORPUSCULAR VOLUME 94 fl (80-97); MONOCYTES % (AUTO) 5.6 % (3-13); RED BLOOD COUNT 3.88 10^6/uL (4.35-5.55); RED CELL DISTRIBUTION WIDTH 13.5 % (11.5-14.0); SEGMENTED NEUTROPHILS % (AUTO) 75.8 % (42-78); WHITE BLOOD COUNT 6.7 10^3/uL (4.0-10.5)
[2017-07-18 09:29] LABS: ALANINE AMINOTRANSFERASE 53 U/L (21-72); ALBUMIN 4.4 g/dL (3.5-5.0); ALKALINE PHOSPHATASE 79 U/L (38-126); ANION GAP 19 (5-19); ASPARTATE AMINO TRANSFERASE 83 U/L (17-59); BILIRUBIN,DIRECT 0.7 mg/dL (0.0-0.4); BILIRUBIN,TOTAL 1.3 mg/dL (0.2-1.3); BLOOD UREA NITROGEN 17 mg/dL (7-20); CALCIUM 9.2 mg/dL (8.4-10.2); CARBON DIOXIDE 22 mmol/L (22-30); CHLORIDE 105 mmol/L (98-107); CREATINE KINASE 1077 U/L (55-170); CREATININE RESULT 0.96 mg/dL (0.52-1.25); GLUCOSE 82 mg/dL (75-110); MAGNESIUM 1.4 mg/dL (1.6-2.3); POTASSIUM 3.3 mmol/L (3.6-5.0); SODIUM 146.1 mmol/L (137-145); TOTAL PROTEIN 7.2 g/dL (6.3-8.2)
--- NOTE | 2017-07-18 09:32 | ER Document Report ---
ED Cardiac <LAURA WHITEHEAD - Last Filed: 07/18/17 11:47> - General Mode of Arrival: Ambulatory Information source: Patient TRAVEL OUTSIDE OF THE [place] IN LAST 30 DAYS: No <COREEN DAVIS - Last Filed: 07/18/17 12:39> - General Chief Complaint: Palpitations Stated Complaint: RAPID PULSE RATE Time Seen by Provider: 07/18/17 09:02 Notes: Patient is a 72-year-old male who presents to the emergency department today with complaints of a heart racing sensation with associated shortness of breath which has been going on for "a week or two". Patient patient states he has not seen his primary care physician for this. Patient admits to not drinking water as much as he should. (COREEN DAVIS) - Related Data Allergies/Adverse Reactions: No Known Allergies Allergy (Verified 05/22/17 14:18) Past Medical History - General Information source: Patient - Social History Smoking Status: Never Smoker Cigarette use (# per day): No Frequency of alcohol use: None - former alcoholic Drug Abuse: None Lives with: Family Family History: Reviewed & Not Pertinent - Past Medical History Cardiac Medical History: Reports: Hx Atrial Fibrillation, Hx Coronary Artery Disease, Hx Hypercholesterolemia, Hx Hypertension Renal/ Medical History: Reports: Hx Benign Prostatic Hyperplasia GI Medical History: Reports: Hx Gastroesophageal Reflux Disease Psychiatric Medical History: Reports: Hx Depression Past Surgical History: Reports: Hx Cardiac Surgery - Internal heart monitor Aug 2014, Hx Orthopedic Surgery - MINOR TOE PROCEEDURE - Immunizations Immunizations up to date: Yes Hx Diphtheria, Pertussis, Tetanus Vaccination: Yes Hx Pneumococcal Vaccination: 09/20/11 <COREEN DAVIS - Last Filed: 07/18/17 12:39> Review of Systems - Review of Systems Constitutional: No symptoms reported EENT: No symptoms reported Cardiovascular: See HPI, Heart racing Respiratory: See HPI, Short of breath Gastrointestinal: No symptoms reported Genitourinary: No symptoms reported Male Genitourinary: No symptoms reported Musculoskeletal: No symptoms reported Skin: No symptoms reported Hematologic/Lymphatic: No symptoms reported Neurological/Psychological: No symptoms reported -: Yes All other systems reviewed and negative <COREEN DAVIS - Last Filed: 07/18/17 12:39> Physical Exam <LAURA WHITEHEAD - Last Filed: 07/18/17 11:47> <COREEN DAVIS - Last Filed: 07/18/17 12:39> - Vital signs Vitals: Temp Resp BP Pulse Ox 98.1 F 15 105/69 99 07/18/17 08:27 07/18/17 08:27 07/18/17 08:27 07/18/17 08:27 - Notes Notes: Physical Exam: General: Alert, appears well. HEENT: Normocephalic. Atraumatic. PERRL. Extraocular movements intact. Oropharynx clear. No carotid bruits. Neck: Supple. Non-tender. Respiratory: No respiratory distress. Clear and equal breath sounds bilaterally. Cardiovascular: Regular rate and rhythm. Abdominal: Normal Inspection. Non-tender. No distension. Normal Bowel Sounds. Back: Non-tender. No deformity or step off. Extremities: Moves all four extremities. Upper extremities: Normal inspection. Normal ROM. Lower extremities: Normal inspection. No edema. Normal ROM. Neurological: Normal cognition. AAOx4. Normal speech. Psychological: Normal affect. Normal Mood. Skin: Warm. Dry. Normal color. (COREEN DAVIS) Course - Laboratory Result Diagrams: 07/18/17 08:30 07/18/17 08:30 - EKG Interpretation by Nd EKG shows normal: Sinus rhythm, QRS Complexes, ST-T Waves. abnormal: [place] - Borderline left axis deviation, Intervals - Borderline prolonged QT interval Rate: Normal - 84 Rhythm: NSR, PVC's When compared to previous EKG there are: No significant change - Consults Dr. Stacy Time consulted: 11:25 Consulted provider: will see as inpatient <LAURA WHITEHEAD - Last Filed: 07/18/17 11:47> - Laboratory Result Diagrams: 07/18/17 08:30 07/18/17 08:30 <COREEN DAVIS - Last Filed: 07/18/17 12:39> - Re-evaluation Re-evalutation: 07/18/17 11:29 The patient's CPK was 1077, he was admitted on 05/22/2017 with rhabdomyolysis with CK over 2000. He remains on high-dose statin therapy despite the rhabdomyolysis in May 2017 (LAURA WHITEHEAD) - Vital Signs Vital signs: Temp Pulse Resp BP Pulse Ox 98.1 F 13 105/67 98 07/18/17 08:27 07/18/17 11:01 07/18/17 11:01 07/18/17 11:01 - Laboratory Laboratory results interpreted by me: 07/18/17 07/18/17 08:30 08:30 RBC 3.88 L Hgb 12.4 L Hct 36.4 L Sodium 146.1 H Potassium 3.3 L Magnesium 1.4 L Direct Bilirubin 0.7 H AST 83 H Creatine Kinase 1077 H Discharge - Discharge Admitting Provider: Adaor Unit Admitted: Medical Floor <LAURA WHITEHEAD - Last Filed: 07/18/17 11:47> <COREEN DAVIS - Last Filed: 07/18/17 12:39> - Discharge Clinical Impression: Shortness of breath, Rhabdomyolysis due to statin therapy Condition: Stable Disposition: ADMITTED INPATIENT Scribe Attestation: 07/18/17 11:30 I personally performed the services described in the documentation, reviewed and edited the documentation which was dictated to the scribe in my presence, and it accurately records my words and actions. (LAURA WHITEHEAD) Scribe Documentation - Scribe Written by Scribe:: Shabana Deutsch, 07/18/2017 1239 acting as scribe for :: Kianna <COREEN DAVIS - Last Filed: 07/18/17 12:39>
[2017-07-18 09:40] LABS: TROPONIN I < 0.012 ng/mL
--- NOTE | 2017-07-18 10:44 | RADIOLOGY REPORT (SQ) ---
EXAM DESCRIPTION: CHEST SINGLE VIEW COMPLETED DATE/TIME: 07/18/2017 10:34 am REASON FOR STUDY: SOB, fast heart rate, sweating COMPARISON: 05/22/2017 EXAM PARAMETERS: NUMBER OF VIEWS: One view. TECHNIQUE: Single frontal radiographic view of the chest acquired. RADIATION DOSE: NA LIMITATIONS: None. FINDINGS: LUNGS AND PLEURA: No opacities, masses or pneumothorax. No pleural effusion. MEDIASTINUM AND HILAR STRUCTURES: No masses. Contour normal. HEART AND VASCULAR STRUCTURES: Heart normal in size. Normal vasculature. BONES: No acute findings. HARDWARE: Loop recorder. OTHER: No other significant finding. IMPRESSION: NO ACUTE RADIOGRAPHIC FINDING IN THE CHEST. TECHNICAL DOCUMENTATION: JOB ID: [id number]
--- NOTE | 2017-07-18 12:23 | EKG REPORT ---
SEVERITY:- BORDERLINE ECG - SINUS RHYTHM VENTRICULAR PREMATURE COMPLEX BORDERLINE LEFT AXIS DEVIATION BORDERLINE PROLONGED QT INTERVAL : Confirmed by: Arden Hinton MD 18-Jul-2017 12:22:55
[2017-07-18] MEDS ORDERED: NORMAL SALINE 1000 ML 1,000 ML IV PRN (13:33)
[2017-07-18] MEDS ORDERED: (PENDING PHARMACY ID) (Melatonin [Melatin] 3 MG) PO PRN (16:34)
[2017-07-18 16:50] VITALS: BP 131/81
--- NOTE | 2017-07-18 16:50 | PDOC H&P ---
History of Present Illness Admission Date/PCP: 07/18/17 11:41 RUDY SANTIAGO MD History of Present Illness: REGINO JASSO is a 72 year old male, he came to the emergency room this afternoon for evaluation of palpitation and sweating. He said he went for a walk, he was diaphoretic, and because he had palpitation he came to emergency room for evaluation in the emergency room was evaluated he was found to have elevated serum CPK mild hypokalemia. He denied any muscle aches or pain there is no chest pain. He has a history of paroxysmal atrial fibrillation, he was evaluated extensively by [employer] roll mechanic for this condition. When I saw him on the floor he was comfortable he said he feels okay I want to go home. He probably could go home, when I review my office notes, atorvastatin was listed as 1 of the medication he takes but on the medication reconciliation list that was done by the pharmacist the atorvastatin was not listed as home medication so it seemed that apparently he is not taking the medication at home for cholesterol. I did not have a good explanation for the elevated CPK, he has no muscle pain he has no history of trauma or injury the troponin was normal suggesting that the CPK elevation is not from cardiac muscles,He has elevated liver enzymes, he has a history of alcohol abuse with alcoholic liver disease. He probably could be discharged home, since he wants to go home today. Past Medical History Cardiac Medical History: Reports: Atrial Fibrillation, Hyperlipidema, Hypertension GI Medical History: Reports: Gastroesophageal Reflux Disease Psychiatric Medical History: Reports: Depression Hematology: Reports: Anemia Past Surgical History Past Surgical History: Reports: Orthopedic Surgery - MINOR TOE PROCEEDURE Social History Lives with: Family Smoking Status: Never Smoker Frequency of Alcohol Use: Occasional Hx Recreational Drug Use: No Drugs: None Hx Prescription Drug Abuse: No Family History Family History: Reviewed & Not Pertinent Parental Family History Reviewed: Yes Children Family History Reviewed: Yes Sibling(s) Family History Reviewed.: Yes Medication/Allergy Home Medications: Clonidine HCl [Catapres 0.1 mg Tablet] 0.1 mg PO Q8 07/18/17 Docusate Sodium [Colace 100 mg Capsule] 200 mg PO DAILY 07/18/17 Finasteride [Proscar 5 mg Tablet] 5 mg PO DAILY 07/18/17 Folic Acid [Folvite 1 mg Tablet] 1 mg PO DAILY 07/18/17 Gabapentin [Neurontin 300 mg Capsule] 300 mg PO QHS 07/18/17 Hydrochlorothiazide [Hydrodiuril 25 mg Tablet] 25 mg PO DAILY 07/18/17 Melatonin [Melatin] 3 mg PO HSP PRN 07/18/17 Metoprolol Succinate [Toprol Xl 50 mg Tab.sr] 50 mg PO DAILY 07/18/17 Thiamine HCl [Thiamine 100 mg Tablet] 100 onqpump PO DAILY 07/18/17 Allergies/Adverse Reactions: No Known Allergies Allergy (Verified 05/22/17 14:18) Review of Systems Constitutional: ABSENT: chills, fever(s), headache(s), weight gain, weight loss Eyes: ABSENT: visual disturbances Ears: ABSENT: hearing changes Nose, Mouth, and Throat: PRESENT: other Cardiovascular: PRESENT: palpitations Respiratory: ABSENT: cough, hemoptysis Gastrointestinal: ABSENT: abdominal pain, constipation, diarrhea, hematemesis, hematochezia, nausea, vomiting Genitourinary: ABSENT: dysuria, hematuria Musculoskeletal: ABSENT: joint swelling Integumentary: PRESENT: other - Loss of skin turgor. ABSENT: rash, wounds Neurological: ABSENT: abnormal gait, abnormal speech, confusion, dizziness, focal weakness, syncope Psychiatric: ABSENT: anxiety, depression, homidical ideation, suicidal ideation Endocrine: ABSENT: cold intolerance, heat intolerance, menstrual abnormalities, polydipsia, polyuria Hematologic/Lymphatic: ABSENT: easy bleeding, easy bruising, lymphadenopathy Physical Exam Vital Signs: Temp Pulse Resp BP Pulse Ox 98.1 F 14 128/73 H 100 07/18/17 08:27 07/18/17 12:01 07/18/17 12:00 07/18/17 12:01 General appearance: PRESENT: no acute distress, well-developed, well-nourished Head exam: PRESENT: atraumatic, normocephalic Eye exam: PRESENT: conjunctiva pink, EOMI, PERRLA Ear exam: PRESENT: normal external ear exam Mouth exam: PRESENT: moist, tongue midline Neck exam: PRESENT: full ROM Respiratory exam: PRESENT: clear to auscultation radames Cardiovascular exam: PRESENT: RRR, +S1, +S2 Pulses: PRESENT: normal dorsalis pedis pul, +2 pedal pulses bilateral Vascular exam: PRESENT: normal capillary refill GI/Abdominal exam: PRESENT: normal bowel sounds, soft Rectal exam: PRESENT: deferred Neurological exam: PRESENT: alert, awake, oriented to person, oriented to place , oriented to time, oriented to situation, CN II-XII grossly intact Psychiatric exam: PRESENT: appropriate affect, normal mood Skin exam: PRESENT: dry, intact, warm Results Impressions: Chest X-Ray 07/18/17 09:14 IMPRESSION: NO ACUTE RADIOGRAPHIC FINDING IN THE CHEST. Assessment & Plan - Diagnosis (1) Palpitation Is this a current diagnosis for this admission?: Yes Plan: She has a history of paroxysmal atrial fibrillation, the palpitation could be from episode of proximal atrial fibrillation, the 12-lead EKG that was done shows sinus rhythm (2) Paroxysmal atrial fibrillation Is this a current diagnosis for this admission?: Yes (3) Elevated CPK Is this a current diagnosis for this admission?: Yes Plan: The elevated CPK could be from dehydration (4) Dehydration Is this a current diagnosis for this admission?: Yes Plan: Patient is dehydrated,
--- NOTE | 2017-07-18 16:54 | PDOC DISCHARGE SUMMARY ---
General - Admit/Disc Date/PCP Admission Date/Primary Care Provider: 07/18/17 11:41 RUDY SANTIAGO MD Discharge Date: 07/18/17 - Discharge Diagnosis (1) Palpitation Is this a current diagnosis for this admission?: Yes (2) Paroxysmal atrial fibrillation Is this a current diagnosis for this admission?: Yes (3) Elevated CPK Is this a current diagnosis for this admission?: Yes (4) Dehydration Is this a current diagnosis for this admission?: Yes - Additional Information Discharge Diet: Regular Home Medications: Clonidine HCl [Catapres 0.1 mg Tablet] 0.1 mg PO Q8 07/18/17 Docusate Sodium [Colace 100 mg Capsule] 200 mg PO DAILY 07/18/17 Finasteride [Proscar 5 mg Tablet] 5 mg PO DAILY 07/18/17 Folic Acid [Folvite 1 mg Tablet] 1 mg PO DAILY 07/18/17 Gabapentin [Neurontin 300 mg Capsule] 300 mg PO QHS 07/18/17 Hydrochlorothiazide [Hydrodiuril 25 mg Tablet] 25 mg PO DAILY 07/18/17 Melatonin [Melatin] 3 mg PO HSP PRN 07/18/17 Metoprolol Succinate [Toprol Xl 50 mg Tab.sr] 50 mg PO DAILY 07/18/17 Thiamine HCl [Thiamine 100 mg Tablet] 100 onqpump PO DAILY 07/18/17 History of Present Illness History of Present Illness: REGINO JASSO is a 72 year old male, he came to the emergency room this afternoon for evaluation of palpitation and sweating. He said he went for a walk, he was diaphoretic, and because he had palpitation he came to emergency room for evaluation in the emergency room was evaluated he was found to have elevated serum CPK mild hypokalemia. He denied any muscle aches or pain there is no chest pain. He has a history of paroxysmal atrial fibrillation, he was evaluated extensively by [employer] mergers and acquisitions attorney for this condition. When I saw him on the floor he was comfortable he said he feels okay I want to go home. He probably could go home, when I review my office notes, atorvastatin was listed as 1 of the medication he takes but on the medication reconciliation list that was done by the pharmacist the atorvastatin was not listed as home medication so it seemed that apparently he is not taking the medication at home for cholesterol. I did not have a good explanation for the elevated CPK, he has no muscle pain he has no history of trauma or injury the troponin was normal suggesting that the CPK elevation is not from cardiac muscles,He has elevated liver enzymes, he has a history of alcohol abuse with alcoholic liver disease. He probably could be discharged home, since he wants to go home today. Hospital Course Hospital Course: Patient was admitted for observation and management, he had episode of diaphoresis and palpitation while he was walking for recreation. There was no chest pain there was no chest pressure was no syncope he came to the emergency room because his pulse was elevate,. He has a history of paroxysmal atrial fibrillation, but the 12-lead EKG was sinus rhythm with no acute changes. Patient was admitted with fluid, he said he feels better and wants to go home. Physical Exam Vital Signs: Temp Pulse Resp BP Pulse Ox 99.5 F 80 14 131/81 H 100 07/18/17 16:21 07/18/17 16:21 07/18/17 12:01 07/18/17 16:21 07/18/17 16:21 General appearance: PRESENT: no acute distress, well-developed, well-nourished Head exam: PRESENT: atraumatic, normocephalic Eye exam: PRESENT: conjunctiva pink, EOMI, PERRLA Ear exam: PRESENT: normal external ear exam Mouth exam: PRESENT: moist, tongue midline Neck exam: PRESENT: full ROM Respiratory exam: PRESENT: clear to auscultation radames Cardiovascular exam: PRESENT: RRR Pulses: PRESENT: normal dorsalis pedis pul, +2 pedal pulses bilateral Vascular exam: PRESENT: normal capillary refill GI/Abdominal exam: PRESENT: normal bowel sounds, soft Rectal exam: PRESENT: deferred Neurological exam: PRESENT: alert, awake, oriented to person, oriented to place , oriented to time, oriented to situation, CN II-XII grossly intact Psychiatric exam: PRESENT: appropriate affect, normal mood Skin exam: PRESENT: dry, intact, warm. ABSENT: cyanosis, rash Results Impressions: Chest X-Ray 07/18/17 09:14 IMPRESSION: NO ACUTE RADIOGRAPHIC FINDING IN THE CHEST.
[2017-07-18] MEDS ORDERED: POTASSIUM CHLORIDE 10 MEQ TABLET.SA PO ONE (17:15)
[2017-07-18 17:34] LABS: ALANINE AMINOTRANSFERASE 57 U/L (21-72); ALBUMIN 3.7 g/dL (3.5-5.0); ALKALINE PHOSPHATASE 61 U/L (38-126); ANION GAP 13 (5-19); ASPARTATE AMINO TRANSFERASE 57 U/L (17-59); BILIRUBIN,DIRECT 0.4 mg/dL (0.0-0.4); BLOOD UREA NITROGEN 17 mg/dL (7-20); CALCIUM 8.6 mg/dL (8.4-10.2); CARBON DIOXIDE 22 mmol/L (22-30); CHLORIDE 107 mmol/L (98-107); CREATININE RESULT 0.83 mg/dL (0.52-1.25); GLUCOSE 111 mg/dL (75-110); POTASSIUM 3.1 mmol/L (3.6-5.0); TOTAL PROTEIN 6.1 g/dL (6.3-8.2)
[2017-07-18] MEDS ORDERED: HYDROCHLOROTHIAZIDE 25 MG TABLET PO ONE (18:00)
[2017-07-18] MEDS ORDERED: FINASTERIDE 5 MG TABLET PO SCH (18:00)
[2017-07-18] MEDS ORDERED: METOPROLOL SUCCINATE 50 MG TAB.SR.24H PO ONE (18:00)
[2017-07-18] MEDS ORDERED: DOCUSATE SODIUM 100 MG CAPSULE PO SCH (18:00)
[2017-07-18] MEDS ORDERED: GABAPENTIN 300 MG CAPSULE PO SCH (22:00)
[2017-07-18] MEDS ORDERED: CLONIDINE HCL 0.1 MG TABLET PO SCH (22:00)
[2017-07-19] MEDS ORDERED: FOLIC ACID 1 MG TABLET PO SCH (10:00)
[2017-07-19] MEDS ORDERED: METOPROLOL SUCCINATE 50 MG TAB.SR.24H PO SCH (10:00)
[2017-07-19] MEDS ORDERED: HYDROCHLOROTHIAZIDE 25 MG TABLET PO SCH (10:00)
[2017-07-19] MEDS ORDERED: THIAMINE HCL 100 MG TABLET PO SCH (10:00)
== END 2017-07-18 20:10 | disposition home or self-care (01) ==
LOC: ER 08:14 → INTOOBSV 11:41 → EH 11:41 → 4N 13:03
PROVIDERS: ADMIT Internal Medicine; ATTEND Internal Medicine
DX: R00.2 Palpitations (principal); I48.0 Paroxysmal atrial fibrillation; R74.8 Abnormal levels of other serum enzymes; E86.0 Dehydration; E87.6 Hypokalemia; F10.11 Alcohol abuse, in remission; K70.9 Alcoholic liver disease, unspecified; R61 Generalized hyperhidrosis; I10 Essential (primary) hypertension; I25.10 Atherosclerotic heart disease of native coronary artery without angina pectoris; Z79.899 Other long term (current) drug therapy; Z87.19 Personal history of other diseases of the digestive system; Z95.818 Presence of other cardiac implants and grafts
CPT/HCPCS: 93005; 99285; 96360; 36415; 82550; 83735; 85025; 80053; 84484; 83880; 71010; 93010; G0378; A9270 ×4; J7030

== ENCOUNTER 2017-07-26 09:33 | Emergency (ER) | payer MEDICARE, OTHER ==
--- NOTE | 2017-07-26 10:00 | ER Document Report ---
ED General - General Chief Complaint: Alcohol Withdrawl Stated Complaint: BLOOD PRESSURE PROBLEM TRAVEL OUTSIDE OF THE [place] IN LAST 30 DAYS: No - HPI Notes: Patient with a history of alcohol abuse currently now drinks masses amount of mouthwash states drinking for the last 24 hours multiple into bottles of mouthwash throughout the house. States she will like for him to undergo detox. Patient has a history of white matter disease due to his heavy alcohol consumption in the past. PCP is Dr. Thomas. Patient is confused in triage. - Related Data Allergies/Adverse Reactions: No Known Allergies Allergy (Verified 07/26/17 09:39) Past Medical History - Social History Smoking Status: Former Smoker Chew tobacco use (# tins/day): No Frequency of alcohol use: Former heavy drinker and currently drinks mouthwash Drug Abuse: None Family History: Reviewed & Not Pertinent - Past Medical History Cardiac Medical History: Reports: Hx Atrial Fibrillation, Hx Coronary Artery Disease, Hx Hypercholesterolemia, Hx Hypertension Denies: Hx Congestive Heart Failure, Hx Heart Attack, Hx Peripheral Vascular Disease, Hx Heart Murmur Pulmonary Medical History: Denies: Hx Asthma, Hx Tuberculosis Neurological Medical History: Denies: Hx Cerebrovascular Accident, Hx Seizures Renal/ Medical History: Reports: Hx Benign Prostatic Hyperplasia. Denies: Hx Peritoneal Dialysis GI Medical History: Reports: Hx Gastroesophageal Reflux Disease. Denies: Hx Hepatitis, Hx Hiatal Hernia, Hx Ulcer Psychiatric Medical History: Reports: Hx Depression Infectious Medical History: Denies: Hx Hepatitis Past Surgical History: Reports: Hx Cardiac Surgery - Internal heart monitor Aug 2014, Hx Orthopedic Surgery - MINOR TOE PROCEEDURE. Denies: Hx Appendectomy, Hx Bowel Surgery, Hx Cholecystectomy, Hx Coronary Artery Bypass Graft, Hx Gastric Bypass Surgery, Hx Herniorrhaphy, Hx Open Heart Surgery, Hx Pacemaker, Hx Tonsillectomy - Immunizations Immunizations up to date: Yes Hx Diphtheria, Pertussis, Tetanus Vaccination: Yes Hx Pneumococcal Vaccination: 09/20/11 Physical Exam - Vital signs Vitals: Temp Pulse Resp BP Pulse Ox 98.6 F 89 18 138/76 H 99 07/26/17 09:34 07/26/17 09:34 07/26/17 09:34 07/26/17 09:34 07/26/17 09:34 - Cardiovascular Rhythm: Regular Heart sounds: Normal auscultation Course - Re-evaluation Re-evalutation: 07/26/17 10:00 We will consult social work - Vital Signs Vital signs: Temp Pulse Resp BP Pulse Ox 98.6 F 89 18 138/76 H 99 07/26/17 09:34 07/26/17 09:34 07/26/17 09:34 07/26/17 09:34 07/26/17 09:34
[2017-07-26 10:30] LABS: ABSOLUTE LYMPHOCYTES (AUTO) 2.5 10^3/uL (0.5-4.7); ABSOLUTE MONOCYTES (AUTO) 0.4 10^3/uL (0.1-1.4); ABSOLUTE NEUT (AUTO) 5.1 10^3/uL (1.7-8.2); BASOPHILS % (AUTO) 0.6 % (0-2); EOSINOPHILS % (AUTO) 0.1 % (0-6); HEMATOCRIT 41.9 % (37.9-51.0); HEMOGLOBIN 14.3 g/dL (13.5-17.0); MEAN CORPUSCULAR HEMOGLOBIN 32.4 pg (27.0-33.4); MEAN CORPUSCULAR HGB CONC 34.2 g/dL (32.0-36.0); MEAN CORPUSCULAR VOLUME 95 fl (80-97); RED BLOOD COUNT 4.42 10^6/uL (4.35-5.55); RED CELL DISTRIBUTION WIDTH 14.5 % (11.5-14.0); SEGMENTED NEUTROPHILS % (AUTO) 63.3 % (42-78)
[2017-07-26 10:42] LABS: ALANINE AMINOTRANSFERASE 57 U/L (21-72); ALBUMIN 5.2 g/dL (3.5-5.0); ALKALINE PHOSPHATASE 93 U/L (38-126); ASPARTATE AMINO TRANSFERASE 70 U/L (17-59); BILIRUBIN,DIRECT 0.5 mg/dL (0.0-0.4); BILIRUBIN,TOTAL 0.7 mg/dL (0.2-1.3); BLOOD UREA NITROGEN 22 mg/dL (7-20); CALCIUM 9.6 mg/dL (8.4-10.2); CREATINE KINASE 583 U/L (55-170); CREATININE RESULT 1.06 mg/dL (0.52-1.25); GLUCOSE 87 mg/dL (75-110); TOTAL PROTEIN 8.8 g/dL (6.3-8.2)
--- NOTE | 2017-07-26 10:46 | ER Document Report ---
ED Substance Abuse / Acc. OD - General Chief Complaint: Alcohol Withdrawl Stated Complaint: BLOOD PRESSURE PROBLEM Time Seen by Provider: 07/26/17 10:04 Mode of Arrival: Ambulatory Information source: Patient, Relative TRAVEL OUTSIDE OF THE [place] IN LAST 30 DAYS: No - HPI Patient complains to provider of: Alcohol abuse - mouthwash Notes: Patient is a 72-year-old male presenting to the emergency room today requesting assistance with detox for abuse of mouthwash, reports that he used to have an alcohol addiction and was clean since 1991, and approximately 2 years ago he started drinking mouthwash, he currently consumes 2-3 bottles of mouthwash daily , patient denies any suicidal or homicidal ideation, initially he told me he was here because his blood pressure is high and he cannot sleep, he repeatedly states "I need to be admitted right away", he otherwise denies any injury, no cough, cold or congestion, no nausea or vomiting, no fever or chills, no chest pain or shortness of breath - Related Data Allergies/Adverse Reactions: No Known Allergies Allergy (Verified 07/26/17 09:39) Home Medications: Current Home Medications Dronedarone Hydrochloride [Multaq 400 Mg Tablet] 400 mg PO BIDBS 07/26/17 [ History] Past Medical History - General Information source: Patient, Relative - Social History Smoking Status: Former Smoker Chew tobacco use (# tins/day): No Frequency of alcohol use: Former heavy drinker and currently drinks mouthwash Drug Abuse: None Family History: Reviewed & Not Pertinent - Past Medical History Cardiac Medical History: Reports: Hx Atrial Fibrillation, Hx Coronary Artery Disease, Hx Hypercholesterolemia, Hx Hypertension Denies: Hx Congestive Heart Failure, Hx Heart Attack, Hx Peripheral Vascular Disease, Hx Heart Murmur Pulmonary Medical History: Denies: Hx Asthma, Hx Tuberculosis Neurological Medical History: Denies: Hx Cerebrovascular Accident, Hx Seizures Renal/ Medical History: Reports: Hx Benign Prostatic Hyperplasia. Denies: Hx Peritoneal Dialysis GI Medical History: Reports: Hx Gastroesophageal Reflux Disease. Denies: Hx Hepatitis, Hx Hiatal Hernia, Hx Ulcer Psychiatric Medical History: Reports: Hx Depression Infectious Medical History: Denies: Hx Hepatitis Past Surgical History: Reports: Hx Cardiac Surgery - Internal heart monitor Aug 2014, Hx Orthopedic Surgery - MINOR TOE PROCEEDURE. Denies: Hx Appendectomy, Hx Bowel Surgery, Hx Cholecystectomy, Hx Coronary Artery Bypass Graft, Hx Gastric Bypass Surgery, Hx Herniorrhaphy, Hx Open Heart Surgery, Hx Pacemaker, Hx Tonsillectomy - Immunizations Immunizations up to date: Yes Hx Diphtheria, Pertussis, Tetanus Vaccination: Yes Hx Pneumococcal Vaccination: 09/20/11 Review of Systems - Review of Systems Constitutional: No symptoms reported EENT: No symptoms reported Cardiovascular: No symptoms reported Respiratory: No symptoms reported Gastrointestinal: No symptoms reported Genitourinary: No symptoms reported Male Genitourinary: No symptoms reported Musculoskeletal: No symptoms reported Skin: No symptoms reported Hematologic/Lymphatic: No symptoms reported Neurological/Psychological: See HPI -: Yes All other systems reviewed and negative Physical Exam - Vital signs Vitals: Temp Pulse Resp BP Pulse Ox 98.6 F 89 18 138/76 H 99 07/26/17 09:34 07/26/17 09:34 07/26/17 09:34 07/26/17 09:34 07/26/17 09:34 Interpretation: Normal - General General appearance: Alert In distress: None - HEENT Head: Normocephalic, Atraumatic Eyes: Normal Conjunctiva: Normal Extraocular movements intact: Yes Eyelashes: Normal Pupils: PERRL Mucous membranes: Other - Minty odor to breath Pharynx: Normal Neck: Normal - Respiratory Respiratory status: No respiratory distress Chest status: Nontender Breath sounds: Normal Chest palpation: Normal - Cardiovascular Rhythm: Regular Heart sounds: Normal auscultation Murmur: No - Abdominal Inspection: Normal Distension: No distension Bowel sounds: Normal Tenderness: Nontender Organomegaly: No organomegaly - Back Back: Normal, Nontender - Extremities General upper extremity: Normal inspection, Nontender, Normal color, Normal ROM , Normal temperature General lower extremity: Normal inspection, Nontender, Normal color, Normal ROM , Normal temperature, Normal weight bearing. No: Bonnie's sign - Neurological Neuro grossly intact: Yes Cognition: Confused Orientation: Disoriented to events [place] Coma Scale Eye Opening: Spontaneous [place] Coma Scale Verbal: Confused [place] Coma Scale Motor: Obeys Commands [place] Coma Scale Total: 14 Speech: Normal Motor strength normal: LUE, RUE, LLE, RLE Sensory: Normal - Psychological Associated symptoms: Confused - Skin Skin Temperature: Warm Skin Moisture: Dry Skin Color: Normal Course - Re-evaluation Re-evalutation: 07/26/17 16:46 Mental health team was helpful in obtaining patient a detox bed at [facility], he is agreeable to going there today and his will transport him, he is otherwise medically stable for discharge, repeat blood alcohol has come down nicely, he exhibits no signs or symptoms of alcohol withdrawal at this point in time, however he was provided with a dose of Ativan in the emergency room to prevent such symptoms prior to his arrival in detox, patient was advised to return if any additional concerns, patient and at bedside acknowledge understanding and agreement with the plan - Vital Signs Vital signs: Temp Pulse Resp BP Pulse Ox 98.6 F 107 H 18 115/67 97 07/26/17 09:34 07/26/17 14:38 07/26/17 14:38 07/26/17 14:38 07/26/17 14:38 - Laboratory Result Diagrams: 07/26/17 10:05 07/26/17 10:05 Laboratory results interpreted by me: 07/26/17 07/26/17 07/26/17 10:05 10:05 10:23 RDW 14.5 H Sodium 146.1 H Anion Gap 22 H BUN 22 H Direct Bilirubin 0.5 H AST 70 H Creatine Kinase 583 H Total Protein 8.8 H Albumin 5.2 H Urine Protein 30 H Urine Ketones TRACE H Urine Blood MODERATE H Salicylates < 1.0 L Acetaminophen < 10 L Serum Alcohol 348 H* - EKG Interpretation by Me EKG shows normal: Sinus rhythm Rate: Normal Rhythm: NSR, PVC's Discharge - Discharge Clinical Impression: Alcohol abuse Condition: Stable Disposition: HOME, SELF-CARE Instructions: Acute Alcohol Intoxication ([facility]), Chronic Alcoholism ([facility]) Additional Instructions: Report directly to [facility] for assistance with detox and rehab. They have an available bed for you today and they are willing to take you to assist you in treatment for alcoholism. Follow-up with your primary care provider in 2-3 days. Return to the emergency room immediately if symptoms worsen or any additional concerns. Prescriptions: Chlordiazepoxide HCl [Librium 25 mg Capsule] 50 mg PO QID #20 capsule
[2017-07-26 10:50] LABS: CARBON DIOXIDE 23 mmol/L (22-30); CHLORIDE 101 mmol/L (98-107); POTASSIUM 4.5 mmol/L (3.6-5.0); SODIUM 146.1 mmol/L (137-145)
[2017-07-26 10:51] LABS: ANION GAP 22 (5-19)
[2017-07-26 10:52] LABS: APPEARANCE,URINE CLEAR; BILIRUBIN,URINE NEGATIVE (NEGATIVE); GLUCOSE, URINE NEGATIVE (NEGATIVE); KETONES,URINE TRACE mg/dL (NEGATIVE); LEUKOCYTE ESTERASE,URINE NEGATIVE (NEGATIVE); NITRITE,URINE NEGATIVE (NEGATIVE); PROTEIN,URINE 30 mg/dL (NEGATIVE); URINE SPECIFIC GRAVITY 1.016; UROBILINOGEN,URINE NEGATIVE mg/dL (<2.0)
[2017-07-26 10:53] LABS: ALCOHOL 348 mg/dL (NONE DETECTED)
[2017-07-26 11:04] LABS: URINE BARBITURATES SCREEN NEGATIVE; URINE METHADONE SCREEN NEGATIVE; URINE OPIATES LOW NEGATIVE; URINE PHENCYCLIDINE SCREEN NEGATIVE
[2017-07-26] MEDS ORDERED: LORAZEPAM INJ 2 MG/1 ML VIAL IM ONE (14:29)
[2017-07-26 14:39] VITALS: BP 115/67
--- NOTE | 2017-07-26 20:22 | EKG REPORT ---
SEVERITY:- BORDERLINE ECG - SINUS RHYTHM VENTRICULAR PREMATURE COMPLEX BORDERLINE LEFT AXIS DEVIATION BORDERLINE PROLONGED QT INTERVAL : Confirmed by: Kayla Yates MD 26-Jul-2017 20:22:10
== END 2017-07-26 15:13 | disposition home or self-care (01) ==
LOC: ER 09:33
DX: F10.10 Alcohol abuse, uncomplicated (principal); I48.91 Unspecified atrial fibrillation; I25.10 Atherosclerotic heart disease of native coronary artery without angina pectoris; E78.00 Pure hypercholesterolemia, unspecified; I10 Essential (primary) hypertension; Z87.891 Personal history of nicotine dependence
CPT/HCPCS: 93005; 99285; 96372; 36415; 80307 ×4; 82550; 85025; 80053; 81001; 93010; J2060